=== PATIENT | female | born 1995 | race Caucasian/White ===

== ENCOUNTER 2019-07-14 11:01 | Emergency (ER) | payer BC ==
[~2019-07-14] VITALS: Ht 170.2 cm; Wt 83.2 kg
--- NOTE | 2019-07-14 11:21 | NUR ---
SPOKE WITH THE PATIENT'S DAD AND SHE HAS BEEN DIAGNOSED WITH SCHIZO AFFECTIVE DISORDER AND BIPOLAR, THE PATIENT HAS BEEN ON ABILIFY RESEARCH CONSULTANT WAS DOING WELL AND IN CONJUNCTION WITH THE PATIENT'S DOCTOR WEENING OFF OF THE ABILIFY AND A COUPLE OF MONTHS AGO COMPLETELY OFF OF IT.
[2019-07-14 11:58] LABS: BASOPHILS # (AUTO) 0.1 X10'3 (0-0.2); BASOPHILS % (AUTO) 0.8 % (0-1); EOSINOPHILS % (AUTO) 0.2 % (0-6); HEMATOCRIT 41.3 % (35.0-45.0); HEMOGLOBIN 13.6 g/dl (12.0-16.0); LYMPHOCYTES # (AUTO) 3.5 X10'3 (1.1-4.8); LYMPHOCYTES % (AUTO) 31.6 % (21-51); MEAN CORPUSCULAR HEMOGLOBIN 28.7 PG (27.0-31.0); MEAN CORPUSCULAR HGB CONC 32.9 g/dL (33.0-36.5); MEAN CORPUSCULAR VOLUME 87.2 FL (78-98); MEAN PLATELET VOLUME 7.5 FL (7.4-10.4); MONOCYTES # (AUTO) 0.7 X10'3 (0-0.9); MONOCYTES % (AUTO) 6.1 % (2-12); NEUTROPHILS # (AUTO) 6.8 X10'3 (1.8-7.7); NEUTROPHILS % (AUTO) 61.3 % (42-75); PLATELET COUNT 304 X10'3 (140-440); RED BLOOD COUNT 4.74 X10'6 (4.20-5.60); RED CELL DISTRIBUTION WIDTH 13.2 % (11.5-14.5); WHITE BLOOD COUNT 11.1 X10'3 (4.5-11.0)
[2019-07-14 12:07] LABS: CLARITY,URINE CLOUDY (Clear); GLUCOSE, URINE NEGATIVE (Neg); KETONES,URINE TRACE mg/dl (Neg); LEUKOCYTE ESTERASE ,URINE TRACE (Neg); NITRITES, URINE NEGATIVE (Neg); OCCULT BLOOD,URINE SMALL (Neg); PROTEIN,URINE 30 mg/dl (Neg); URINE HCG NEGATIVE (NEG)
[2019-07-14 12:20] LABS: ALANINE AMINOTRANSFERASE 23 U/L (12-78); ALBUMIN 4.2 G/DL (3.4-5.0); ALBUMIN/GLOBULIN RATIO 1.1 (1.1-1.5); ALKALINE PHOSPHATASE 83 IU/L (46-116); ANION GAP 9 (8-16); ASPARTATE AMINO TRANSFERASE 17 U/L (10-37); BILIRUBIN,TOTAL 0.8 MG/DL (0.1-1.0); BLOOD UREA NITROGEN 8 MG/DL (7-18); BUN/CREATININE RATIO 9.2 (6.6-38.0); CALCIUM 9.4 MG/DL (8.5-10.1); CHLORIDE 106 MMOL/L (99-107); CREATININE 0.87 MG/DL (0.40-0.90); GLUCOSE 94 MG/DL (70-104); POTASSIUM 3.6 MMOL/L (3.5-5.1); SODIUM 141 MMOL/L (135-145); eGFR 80 ML/MIN
[2019-07-14 12:23] LABS: URINE AMPHETAMINE SCREEN NEGATIVE (Neg); URINE BARBITUATE SCREEN NEGATIVE (Neg); URINE BENZODIAZEPINES SCREEN NEGATIVE (Neg); URINE CANNABINOID SCREEN POSITIVE (Neg); URINE COCAINE SCREEN NEGATIVE (Neg); URINE METHADONE SCREEN NEGATIVE (Neg); URINE OPIATE SCREEN NEGATIVE (Neg); URINE PHENCYCLIDINE SCREEN NEGATIVE (Neg)
[2019-07-14 12:24] LABS: COLOR,URINE DARK YELLOW (Yellow); UA COLLECTION TYPE CLN CATCH MIDSTREAM
[2019-07-14 12:25] LABS: ACETAMINOPHEN < 2.0 UG/ML (10-30); ETHANOL < 0.010 GM/DL (0.0-0.010); VALPROATE < 3.0 UG/ML (50-100)
[2019-07-14 12:27] LABS: AMORPHOUS URATES 1+; BACTERIA,URINE 1+ /HPF (Neg); MUCUS STRANDS MANY /LPF (Neg); RBC,URINE 0-2 /HPF (0-2); SQUAMOUS EPITHELIAL CELL,UR MANY /LPF (FEW); WBC,URINE 0-4 /HPF (0-4)
[2019-07-14] MEDS ORDERED: NO HOME MEDS (13:00)
--- NOTE | 2019-07-14 13:45 | NUR ---
Patient transferred from main ER accompanied by RN, Father, fiance and security, ambulating self, no distress observed. She is changed in to green scrubs, all items inventoried and stored. Patient denies SI, HI, A/VH however, she appears to have some bizarre behaviors, tangential speech, and she has her fiance answer questions during the assessment. Father notes that the behavior has been going on since yesterday. She is not currently on any medications. She was followed by Dr. Alonso but has not seen him in a few months. She has previous Dx of schizoaffective disorder and bipolar disorder.
--- NOTE | 2019-07-14 13:52 | NUR ---
PT'S FATHER AND FIANCE AT BEDSIDE. PER THE FATHER PT HAD BEEN SEEING DR TAVAREZ AND WAS WEENED OFF OF ABLILIFY PER PT'S REQUEST.
--- NOTE | 2019-07-14 15:17 | NUR ---
RN for [facility] is at bedside assessing patient. No distress observed. Patient's parents and fiance are present.
--- NOTE | 2019-07-14 15:40 | NUR ---
Patient's father, mother and fiance are at bedside. No distress observed. Will continue to monitor.
--- NOTE | 2019-07-14 17:02 | NUR ---
Patient is sitting up in bed with her head in her hands. Mother, father, therapist and fiance are at bedside. [facility] has reported that she is going to be held on a 5150. He states that she has many resources and support, but she is currently unstable and not on any medications, nor is she being actively followed by Dr. Alonso currently.
--- NOTE | 2019-07-14 18:07 | NUR ---
Patient states that she is very hungry. Offered juice, string cheese and yogurt which patient accepted. Father and other female family member at bedside. She is slamming her water cup and putting her hair over her face when this RN is talking.
--- NOTE | 2019-07-14 18:36 | NUR ---
Jane from [facility] called to do a nurst to nurse. She will be faxing a Senior virus questionnaire.
[2019-07-14] MEDS ORDERED: LORazepam 0.5 MG tablet PO ONE (19:00)
--- NOTE | 2019-07-14 19:30 | NUR ---
Patient is talking with parents. She is up to bathroom. Patient is responding to internal stimuli. Patient smears her fecal material around toilet and law. The patient is assisted with cleaning self by a female tech. Patient is given a new set of scrubs. Patient is resting quietly.
--- NOTE | 2019-07-14 20:00 | NUR ---
A nurse who identified herself as Jane called from [facility] in [place]. This patient will be accepted tomorrow at that hospital, [address] Dr[address] Elmore is the accepting doctor. Per Alma Rosa at [facility] the transport car will be here at 0715 hours.
[2019-07-14] MEDS ORDERED: traZODone 50mg tablet PO ONE (21:00)
--- NOTE | 2019-07-14 22:13 | NUR ---
Patient is sleeping quietly on her left side.
--- NOTE | 2019-07-14 23:16 | NUR ---
Patient is awake and requisting food. She is smiling, laughing, she exhibits flight of ideas. The patient is rapidly shifting her words and actions and presents manic like in behavior.
[2019-07-14] MEDS ORDERED: haloperidol 5mg tablet PO ONE (23:30)
[2019-07-14] MEDS ORDERED: LORazepam 1 MG tablet PO ONE (23:30)
[2019-07-14] MEDS ORDERED: haloperidol lactate 5mg/ml inj ONE (23:36)
[2019-07-14] MEDS ORDERED: LORazepam 2 mg/ml vial ONE (23:37)
[2019-07-14] MEDS ORDERED: LORazepam 2 mg/ml vial IM ONE (23:55)
[2019-07-14] MEDS ORDERED: haloperidol lactate 5mg/ml inj IM ONE (23:55)
[2019-07-14] MEDS ORDERED: diphenhydrAMINE 50 mg/ml inj IM ONE (23:55)
--- NOTE | 2019-07-15 01:30 | NUR ---
This patient is calming some. She is supine in bed. This expert medical writer holds her hand, soft music is played. The patient is easily stimulated to an awake state. A sitter is at bedside holding patients hand at times.
--- NOTE | 2019-07-15 01:45 | NUR ---
This scenario writer spoke with Dr. Araujo. An order was received for Zyprexa IM. If patient doesn't sleep soon Zyprexa will be administered.
[2019-07-15] MEDS ORDERED: OLANZapine **IM** 10 mg inj. IM ONE (01:50)
--- NOTE | 2019-07-15 02:06 | NUR ---
The patient is now sleeping on her right side. Stimulation is being kept to a minimum. Zyprexa is witheld at the moment in hopes patient keeps sleeping. Patient is in view from the nursing station. Frequent rounding is also being done by the tech's for patient safety.
[2019-07-15 05:32] VITALS: BP 110/63
--- NOTE | 2019-07-15 06:14 | NUR ---
Patient is up to the bathroom. Patient is still exhibiting manic behavior, she can be redirected. Patient voided. Last BM was yesterday evening. Patient taking on PO fluids without problem.
== END 2019-07-15 07:37 ==
LOC: ER 11:02
DX: F30.9 Manic episode, unspecified (principal); F12.90 Cannabis use, unspecified, uncomplicated; Z72.89 Other problems related to lifestyle
CPT/HCPCS: 36415; 80053; 80164; 80178; 80305; 80320; 80329; 81001; 81025; 84443; 85025; 96372; 99285; J1200; J1630; J2060

== ENCOUNTER 2021-01-30 17:49 | Emergency (ER) | payer BC, MEDICAID ==
[~2021-01-30] VITALS: Ht 172.7 cm; Wt 110.0 kg
[~2021-01-30 17:49] MED LIST: NO HOME MEDS
[2021-01-30] MEDS ORDERED: haloperidol lactate 5mg/ml inj IM ONE (18:10)
[2021-01-30] MEDS ORDERED: LORazepam 2 mg/ml vial IM ONE (18:15)
[2021-01-30] MEDS ORDERED: diphenhydrAMINE 50 mg/ml inj IM ONE (18:15)
--- NOTE | 2021-01-30 18:51 | NUR ---
The patient was brought in by [employer] after he was called by her parents reporting that she was having "a mental health breakdown" She has previously been diagnoised bipolar. She presented as very manic and talking very rapidly and making grandiose and delusional statements.
[2021-01-30 19:02] LABS: BASOPHILS % (AUTO) 0.5 % (0-1); EOSINOPHILS % (AUTO) 0.1 % (0-6); HEMATOCRIT 36.9 % (35.0-45.0); HEMOGLOBIN 12.6 g/dl (12.0-16.0); LYMPHOCYTES # (AUTO) 1.7 X10'3 (1.1-4.8); LYMPHOCYTES % (AUTO) 18.7 % (21-51); MEAN CORPUSCULAR HEMOGLOBIN 29.1 PG (27.0-31.0); MEAN CORPUSCULAR HGB CONC 34.1 g/dL (33.0-36.5); MEAN CORPUSCULAR VOLUME 85.2 FL (78-98); MEAN PLATELET VOLUME 7.3 FL (7.4-10.4); MONOCYTES # (AUTO) 0.5 X10'3 (0-0.9); MONOCYTES % (AUTO) 5.1 % (2-12); NEUTROPHILS # (AUTO) 7.1 X10'3 (1.8-7.7); NEUTROPHILS % (AUTO) 75.6 % (42-75); PLATELET COUNT 300 X10'3 (140-440); RED BLOOD COUNT 4.33 X10'6 (4.20-5.60); RED CELL DISTRIBUTION WIDTH 12.8 % (11.5-14.5); WHITE BLOOD COUNT 9.4 X10'3 (4.5-11.0)
--- NOTE | 2021-01-30 19:04 | NUR ---
Spoke with the patient's mother who stated that the patient gave in October of the year and her baby had a traumatic brain injury and was in [facility]. The baby is now home but requires a lot of care. The patient has a very supportive family and she lives with her fiance. Per her mother she has been very difficult to stabilize on medications and usually requires a lengthy hospitalization with high doses of prescription medications. The mother believes that she has not been taking her medications as prescribed.
[2021-01-30] MEDS ORDERED: QUET-1 PO (19:09)
[2021-01-30] MEDS ORDERED: LURA20TA PO (19:09)
[2021-01-30] MEDS ORDERED: LAMO25TA72 PO (19:09)
[2021-01-30] MEDS ORDERED: ZOLP5TAB2 PO (19:09)
[2021-01-30 19:17] LABS: ALANINE AMINOTRANSFERASE 30 U/L (12-78); ALBUMIN/GLOBULIN RATIO 1.3 (1.1-1.5); ALKALINE PHOSPHATASE 115 IU/L (46-116); ANION GAP 10 (8-16); ASPARTATE AMINO TRANSFERASE 20 U/L (10-37); BILIRUBIN,TOTAL 0.8 MG/DL (0.1-1.0); BLOOD UREA NITROGEN 12 MG/DL (7-18); BUN/CREATININE RATIO 13.2 (6.6-38.0); CALCIUM 8.8 MG/DL (8.5-10.1); CHLORIDE 108 MMOL/L (99-107); CREATININE 0.91 MG/DL (0.40-0.90); GLUCOSE 104 MG/DL (70-104); POTASSIUM 3.2 MMOL/L (3.5-5.1); SODIUM 143 MMOL/L (135-145); TOTAL CARBON DIOXIDE 25.5 MMOL/L (24-32); TOTAL PROTEIN 7.2 G/DL (6.4-8.2); eGFR 75 ML/MIN
[2021-01-30 19:27] LABS: ETHANOL < 0.010 GM/DL (0.0-0.010)
[2021-01-30] MEDS ORDERED: potassium Cl 20 mEq SR tablet PO PRN (19:35)
--- NOTE | 2021-01-30 19:47 | NUR ---
The patient is quite a bit calmer and up to use the bathroom and she was made aware that a urine specimen was needed.
[2021-01-30 20:20] LABS: URINE HCG NEGATIVE (NEG)
--- NOTE | 2021-01-30 20:23 | NUR ---
MOTHER, VIRIDIANA HOLLEY [phone]
[2021-01-30 20:28] LABS: CLARITY,URINE SLIGHTLY CLOUDY (Clear); COLOR,URINE YELLOW (Yellow); GLUCOSE, URINE NEGATIVE (Neg); PROTEIN,URINE TRACE mg/dl (Neg); UA COLLECTION TYPE CLN CATCH MIDSTREAM
[2021-01-30 20:29] LABS: KETONES,URINE 80 mg/dl (Neg); LEUKOCYTE ESTERASE ,URINE NEGATIVE (Neg); NITRITES, URINE NEGATIVE (Neg); OCCULT BLOOD,URINE LARGE (Neg); UROBILINOGEN,URINE 0.2 E.U/dL (0.2-1.0)
[2021-01-30 20:34] LABS: BACTERIA,URINE 3+ /HPF (Neg); RBC,URINE NONE SEEN /HPF (0-2); SQUAMOUS EPITHELIAL CELL,UR FEW /LPF (FEW)
[2021-01-30 20:35] LABS: MUCUS STRANDS FEW /LPF (Neg)
[2021-01-30] MEDS: zolpidem 5mg tablet PO SCH (20:37)
[2021-01-30 20:42] LABS: URINE AMPHETAMINE SCREEN NEGATIVE (Neg); URINE BARBITUATE SCREEN NEGATIVE (Neg); URINE BENZODIAZEPINES SCREEN NEGATIVE (Neg); URINE CANNABINOID SCREEN POSITIVE (Neg); URINE COCAINE SCREEN NEGATIVE (Neg); URINE METHADONE SCREEN NEGATIVE (Neg); URINE OPIATE SCREEN NEGATIVE (Neg); URINE PHENCYCLIDINE SCREEN NEGATIVE (Neg)
[2021-01-30] MEDS ORDERED: quetiapine 100mg tablet PO SCH ×2 (21:00)
--- NOTE | 2021-01-30 22:49 | NUR ---
The patient is restless and make odd poses on her bed.
--- NOTE | 2021-01-30 22:50 | NUR ---
Packet sent to [facility]
[2021-01-30] MEDS ORDERED: quetiapine 100mg tablet PO ONE (23:05)
[2021-01-30] MEDS ORDERED: phenazopyridine 100mg tablet PO ONE (23:30)
[2021-01-30] MEDS: cephalexin 250mg capsule PO SCH (23:42)
--- NOTE | 2021-01-31 00:29 | NUR ---
The patient is resting on her bed but is awake and restless
--- NOTE | 2021-01-31 01:10 | NUR ---
Patient standing by her bed reading the posters on the wall.
--- NOTE | 2021-01-31 01:56 | NUR ---
The patient up by the posters by her bed and reading them again. She appears distracted by internal stimuli
[2021-01-31] MEDS ORDERED: LORazepam 1 MG tablet PO ONE ×2 (02:10→12:35)
[2021-01-31] MEDS ORDERED: haloperidol 5mg tablet PO ONE (02:10)
[2021-01-31] MEDS ORDERED: diphenhydrAMINE 25mg capsule PO ONE ×2 (02:10→12:35)
--- NOTE | 2021-01-31 02:20 | NUR ---
Dr. Araujo made aware that the patient has been manic and not sleeping and that she remains awake despite medications already given. Also MD made aware that the family reports that the patient has a high tolerance for medications. Orders received.
--- NOTE | 2021-01-31 02:24 | NUR ---
Medication evaluation requested by psychiatry. Spoke with Zora NICE on [facility]
--- NOTE | 2021-01-31 04:04 | NUR ---
The patient did appear to sleep for a short period but now back awake and standing by her bed
--- NOTE | 2021-01-31 05:34 | NUR ---
The patient is awake and restless around her bed and again reading the posters on her wall.
--- NOTE | 2021-01-31 06:55 | NUR ---
Pt was up to the bathroom and fixed her hair into a ponytail. Pt is now lying in bed calm reading a magazine.
--- NOTE | 2021-01-31 07:04 | NUR ---
Pt's mom called for an update. Mom reiterated it is difficult to stabilze pt on medications.
[2021-01-31] MEDS: lurasidone 20mg tablet PO SCH ×2 (07:46→17:44)
[2021-01-31] MEDS: cephalexin 250mg capsule PO SCH ×2 (07:47→20:17)
[2021-01-31] MEDS: lamoTRIgine 25mg tablet PO SCH (07:47)
--- NOTE | 2021-01-31 08:57 | NUR ---
Pt awake eating breakfast. Noted blood on sheets, pt stated she was menstruating. Pt requested to take a wash bath. Linens changed. Pt was compliant with medication and care. Pt was able to watch T.V which seemed to keep her calm. Pt denies all mental health symptoms, is hesitant and evasive with conversation. Pt ate 100% of meal.
--- NOTE | 2021-01-31 11:08 | NUR ---
Pt appears to be sleeping, respirations even and unlabored. Mother at bedside.
--- NOTE | 2021-01-31 12:02 | NUR ---
Pt up to the bathroom.
--- NOTE | 2021-01-31 12:26 | NUR ---
Pt pacing c/o of feeling anxious. Pt states "I just want to walk, but there is no where to go." Pt watching T.V which seems to help. Received order for PO Benadryl 25mg and Ativan 1mg. Will continue to monitor.
--- NOTE | 2021-01-31 13:25 | NUR ---
Pt finished lunch. Watching T.V, intermittent giggles. Pt calm, mother at bedside.
--- NOTE | 2021-01-31 15:13 | NUR ---
Pt was up to the restroom. Pt ate about 75% of her lunch. Pt continues to be calm. Watching T.V.
--- NOTE | 2021-01-31 17:04 | NUR ---
Pt sitting quietly on her bed watching T.V. Pt is calm. Pt requested clean underware and more sanitary pads.
--- NOTE | 2021-01-31 19:00 | NUR ---
Discussed patient with Grzegorz DRAPER, psychiatry, for medication review and recommendations. Medication adjustments were made.
--- NOTE | 2021-01-31 19:50 | NUR ---
One to one with the patient to assess severity of manic symptoms. The patient is pacing around her bed while watching TV. She did not eat her dinner and when asked why she stated that the ice her glass was stuck to the bottom of the glass so there fore she could not eat. The ice was floating on the top but the patient could not be convinced otherwise. Her replies were vague and minimal but she is pleasant. When asked why she is here she stated, "I was unhappy with the world because no one would listen to each other"
[2021-01-31] MEDS: olanzapine 10mg tablet PO SCH (20:17)
[2021-01-31] MEDS: zolpidem 5mg tablet PO SCH (20:17)
[2021-01-31] MEDS: quetiapine 100mg tablet PO SCH (20:17)
[2021-01-31] MEDS: lactobacillus rhamnosus 10,000 MMU CELLS/CAPSULE PO SCH (20:18)
--- NOTE | 2021-01-31 21:00 | NUR ---
The patient is pacing around the unit.
[2021-01-31] MEDS: quetiapine 100mg tablet PO PRN (21:18)
--- NOTE | 2021-01-31 23:31 | NUR ---
The patient is very restless and has not been asleep despite having repeat seroquel dose
--- NOTE | 2021-02-01 01:01 | NUR ---
The patient is awake and unable to sleep
[2021-02-01] MEDS ORDERED: LORazepam 1 MG tablet PO STA (01:53)
--- NOTE | 2021-02-01 01:54 | NUR ---
Discussed history with ER MD, Dr. Lobo. The patient is getting frustrated that she can't sleep. Order for ativan given. Patient observed hitting herself in the head by public works technician but was easily redirected.
--- NOTE | 2021-02-01 02:04 | NUR ---
The patient agitated was repeatedly sqeezing the purell dispenser.
--- NOTE | 2021-02-01 02:10 | NUR ---
The patient began screaming as loud as she could then she ran around the unit pulling the curtains off of their hooks. She then was slamming her bed rail up and down she then ran toward the back of the unit and was knocking over hospital equipment.
[2021-02-01] MEDS ORDERED: MIDAZolam 5mg/ml 2ml vial IM ONE (02:15)
--- NOTE | 2021-02-01 02:15 | NUR ---
Security was called and the patient was placed in [address] Lobo was made aware and came to the bedside and orders received for IM medications.
[2021-02-01] MEDS ORDERED: MIDAZolam 5mg/ml 2ml vial IM STA (02:44)
--- NOTE | 2021-02-01 03:13 | NUR ---
The patient is currently sleeping and restraints were removed.
[2021-02-01] MEDS ORDERED: diphenhydrAMINE 50 mg/ml inj ONE (04:05)
--- NOTE | 2021-02-01 04:05 | NUR ---
The patient increasingly agitated and unable to follow safety directions. The patient was placed in restraints.
--- NOTE | 2021-02-01 04:19 | NUR ---
Dr. Lobo at the bedside
[2021-02-01] MEDS ORDERED: haloperidol lactate 5mg/ml inj IM ONE ×2 (04:20→04:30)
--- NOTE | 2021-02-01 04:29 | NUR ---
The patient is screaming and agitated.
--- NOTE | 2021-02-01 04:54 | NUR ---
The patient is agitated. She is very tangential and pulling at her restraints.
--- NOTE | 2021-02-01 04:56 | NUR ---
The patient is currently singing but not in any kind of organized way.
--- NOTE | 2021-02-01 05:11 | NUR ---
The patient is bouncing her body up and down on the bed.
--- NOTE | 2021-02-01 05:45 | NUR ---
attempted to engage with the patient and she replied, "stop giving me stupid advice"
--- NOTE | 2021-02-01 06:04 | NUR ---
The patient is making loud screeching sounds and fighting against the restraints.
[2021-02-01] MEDS ORDERED: LORazepam 2 mg/ml vial IM ONE (06:30)
--- NOTE | 2021-02-01 06:30 | NUR ---
Assumed care. Pt yelling, swinging and banging her head. She has pulled her pants all the way down and ripping at her clothing.
--- NOTE | 2021-02-01 06:35 | NUR ---
Ativan inj 1mg IM administered.
--- NOTE | 2021-02-01 07:05 | NUR ---
Pt continues to yell. No response from IM medication Ativan. She continues to swing her head and arms and legs. Pt given a drink of water once calmed down and restraints checked for circulation. HOB elevated per pt request.
[2021-02-01] MEDS: olanzapine 10mg tablet PO SCH ×3 (08:00→19:34)
[2021-02-01] MEDS: cephalexin 250mg capsule PO SCH ×3 (08:00→19:34)
[2021-02-01] MEDS: lamoTRIgine 25mg tablet PO SCH ×2 (08:00→09:07)
[2021-02-01] MEDS: lactobacillus rhamnosus 10,000 MMU CELLS/CAPSULE PO SCH ×3 (08:00→19:32)
--- NOTE | 2021-02-01 09:06 | NUR ---
Pt continues to yell, bang herself swing and twisting and threatening staff harm. At one time pt took this writers fingers and bent them then held on to this writers hand and would not let go.
[2021-02-01] MEDS ORDERED: OLANZapine 5mg rapidly disint. tablet PO ONE (09:50)
--- NOTE | 2021-02-01 10:10 | NUR ---
Pt given Zyprexa Zydis 10mg.
--- NOTE | 2021-02-01 10:45 | NUR ---
Pt has been quiet for a few minutes. She is wiggling and twisting and blinking her eyes. VS WNL's.
--- NOTE | 2021-02-01 11:25 | NUR ---
Removed pt's right foot; she right away began swinging her leg reaching the curtain and kicking at it. Pt yelling.
--- NOTE | 2021-02-01 12:00 | NUR ---
Pt continues to yell occasionally, twist and turn. RR even and unlabored. VS WNL's
--- NOTE | 2021-02-01 13:18 | NUR ---
Pt leaning over the bend. She continues to be agitated; tearful at times.
--- NOTE | 2021-02-01 14:00 | NUR ---
Pt is out of restraints. Pt ate part of her meal. She requested to have it left at the bedside. Pt is resting now.
--- NOTE | 2021-02-01 15:05 | NUR ---
Pt sleeping on her right side. RR even and unlabored. She appears to be comfortable. Pt reports, "I do not feel like I was the one that ripped down the curtains last night and destroyed the items behind the partician." She further states, "I know it happened but felt like I was on the outside looking in." Pt also shared that this is not the first time this has happened to her. Then she began to cry stating, "I'm tired of it." In the past she has been on Ability Maintena DUNCAN and Ability oral, Seroquel and Xanax.
[2021-02-01] MEDS: OLANZapine 5mg rapidly disint. tablet PO PRN (16:46)
--- NOTE | 2021-02-01 17:00 | NUR ---
Pt resting while watching TV. She has taken a sponge bath and has clean linens.
[2021-02-01] MEDS: zolpidem 5mg tablet PO SCH (20:21)
[2021-02-01] MEDS: quetiapine 100mg tablet PO SCH (20:21)
[2021-02-01] MEDS: traZODone 50mg tablet PO SCH ×2 (20:21→23:09)
[2021-02-01] MEDS: QUEtiapine 25mg tablet PO SCH (20:23)
[2021-02-01] MEDS: OLANZapine 5mg rapidly disint. tablet PO SCH (20:27)
[2021-02-01] MEDS ORDERED: magnesium hydroxide 30ml (MOM) UD suspension PO ONE (20:35)
--- NOTE | 2021-02-01 23:07 | NUR ---
Patient still exhibits restlessness, anxiety, she is mildly delusional. Seroquel repeaded along with Trazadone.
[2021-02-01] MEDS: quetiapine 100mg tablet PO PRN (23:09)
--- NOTE | 2021-02-02 01:24 | NUR ---
Patient awoke, exhibited confusion, gait is ataxic. Patient redirected back to bed. Two rails up. Patient returned to sleep.
[2021-02-02] MEDS ORDERED: LORazepam 2 mg/ml vial IM ONE ×2 (02:05→05:40)
--- NOTE | 2021-02-02 02:12 | NUR ---
Patient is constantly getting out of bed, ataxic gait, waiving arms around. Patient labile at times. This automotive service writer spoke with [facility] CAMP[facility]. B-10-2 ordered IM. See MAR. Patient assisted back to bed.
[2021-02-02] MEDS ORDERED: diphenhydrAMINE 50 mg/ml inj IM ONE ×2 (02:15→05:40)
[2021-02-02] MEDS ORDERED: haloperidol lactate 5mg/ml inj IM ONE ×2 (02:25→05:40)
--- NOTE | 2021-02-02 02:35 | NUR ---
B-10-2 Administered IM. Sitter at bedside. Patient now exhibiting manic type behavior.
--- NOTE | 2021-02-02 03:46 | NUR ---
Patient has fallen asleep in a supine position.
--- NOTE | 2021-02-02 05:20 | NUR ---
Patient was out of bed, posturing and walking toward security. Patient making repetative movements. Patient swinging arms around, she is delusional. Dr. Bazan consulted. A 12 lead EKG was done to look for abnormal findings prior to administering additional Haldol. EKG is WNL save for sinus tach with PAC's. Ativan 2 mg given IM along with Benadryl 25 mg IM, and Haldol 10 mg IM. Patient cooperated with injections. She then laid down and is now resting.
--- NOTE | 2021-02-02 06:30 | NUR ---
PT awake and walking around the unit,. calm, linear at this time. She requested a snack and food given.
[2021-02-02] MEDS: lactobacillus rhamnosus 10,000 MMU CELLS/CAPSULE PO SCH ×2 (07:54→20:01)
[2021-02-02] MEDS: olanzapine 10mg tablet PO SCH ×2 (07:54→20:01)
[2021-02-02] MEDS: cephalexin 250mg capsule PO SCH ×2 (07:54→20:01)
[2021-02-02] MEDS: lamoTRIgine 25mg tablet PO SCH (07:55)
--- NOTE | 2021-02-02 08:00 | NUR ---
Pt remains calm but paces around. She requested lotion and chapstick which was given
--- NOTE | 2021-02-02 08:30 | NUR ---
Pt given am medication po and took these without issue. Eating breakfast
--- NOTE | 2021-02-02 09:48 | NUR ---
[facility] called and this RN gave report to Deondre NICE there. He states he will give info to MD to review
[2021-02-02] MEDS: OLANZapine 5mg rapidly disint. tablet PO PRN ×2 (10:12→16:37)
[2021-02-02] MEDS ORDERED: sucralfate 1 gm tablet PO ONE (10:15)
--- NOTE | 2021-02-02 10:22 | NUR ---
Pt pacing, making her bed, up to bathroom. RN talked with pt and asked if she needed something to help. Pt states yes. Zydis 5 mg given po. Pt takes without complication
--- NOTE | 2021-02-02 10:25 | NUR ---
Pt requestes "something for heartburn". RN talked with MD Mendoza who placed order for meds.
--- NOTE | 2021-02-02 13:06 | NUR ---
Pt eating lunch
--- NOTE | 2021-02-02 15:11 | NUR ---
Pt pacing but calm but states she is just bored. Pt given color pages which she states she will "do later". She requests to watch tv. Pt has been calm cooperative. RN ok for tv to be at pt bedside safely. TV brought to pt, she tried finding something and couldn't right now. She heard another pt wanted the tv and was fine to let him take a turn now. [facility] then came to bedside to talk with pt
--- NOTE | 2021-02-02 16:43 | NUR ---
Pt states feeling anious/agitated. Requested "something to help". Zydis 5 mg po given. PT mom now at bedside as well. Pt calm talking with mother.
--- NOTE | 2021-02-02 17:45 | NUR ---
Pt now watching tv at bedside. Eating dinner. NAD, calm
--- NOTE | 2021-02-02 19:13 | NUR ---
The patient has been up on the unit and has been pleasant and polite.
[2021-02-02] MEDS: QUEtiapine 25mg tablet PO SCH (20:01)
[2021-02-02] MEDS: OLANZapine 5mg rapidly disint. tablet PO SCH (20:01)
[2021-02-02] MEDS: zolpidem 5mg tablet PO SCH (20:02)
[2021-02-02] MEDS: quetiapine 100mg tablet PO SCH (20:02)
--- NOTE | 2021-02-02 20:19 | NUR ---
Patient up and pacing. Irritable. Stating she can't trust the staff. HS medications given early
--- NOTE | 2021-02-02 20:57 | NUR ---
Patient agitated and pacing in front of the nursing station talking to herself but doesn't make sense
[2021-02-02] MEDS: quetiapine 100mg tablet PO PRN (20:59)
[2021-02-02] MEDS: traZODone 50mg tablet PO SCH (20:59)
[2021-02-02] MEDS ORDERED: mag hydrox/Alum hydrox/simeth 30ml oral suspension PO ONE (21:30)
--- NOTE | 2021-02-02 22:07 | NUR ---
THe patient was encouraged to lay on her bed and turn the light out which she did
--- NOTE | 2021-02-02 23:03 | NUR ---
The patient is very restless but currently is laying on her bed
--- NOTE | 2021-02-03 00:18 | NUR ---
The patient is unable to sleep and Dr. Araujo was made aware and ativan 2mg was given
--- NOTE | 2021-02-03 01:10 | NUR ---
The patient is awake after only appearing to sleep less than 30 minutes
--- NOTE | 2021-02-03 02:53 | NUR ---
The patient is awake off and on
--- NOTE | 2021-02-03 04:34 | NUR ---
Psychiatric evaluation requested. Spoke with Kaushal Tidwell RN on [facility]. It was requested that the patient's zyprexa doses be reviewed and the patient be evaluated for a mood stabilizer.
--- NOTE | 2021-02-03 04:35 | NUR ---
The patient has been very restless and only sleeping in brief spurts. She has only had 2 hours of broken sleep
[2021-02-03] MEDS ORDERED: diphenhydrAMINE 25mg capsule PO ONE (04:50)
[2021-02-03] MEDS ORDERED: LORazepam 1 MG tablet PO ONE ×2 (04:50)
--- NOTE | 2021-02-03 05:12 | NUR ---
Report to [facility]
--- NOTE | 2021-02-03 07:00 | NUR ---
Pt was awake restless, then returned to her bed and closed eyes.
[2021-02-03] MEDS: cephalexin 250mg capsule PO SCH (07:15)
[2021-02-03] MEDS: lamoTRIgine 25mg tablet PO SCH (07:16)
[2021-02-03] MEDS: olanzapine 10mg tablet PO SCH (07:16)
[2021-02-03] MEDS: lactobacillus rhamnosus 10,000 MMU CELLS/CAPSULE PO SCH (07:16)
--- NOTE | 2021-02-03 07:20 | NUR ---
Pt continues to pace, at pumping hand office nurse and rubbing hands. Pt agreeable to take additional medications. Received order for Ativan 1mg q4h. Administered with out issue. Will continue to monitor.
--- NOTE | 2021-02-03 07:23 | NUR ---
Pt awake sitting in chair next to bed, head is in hands. Administered pt's morning medication that included Zyprexa 10mg. Pt is pacing, but has remained calm.
[2021-02-03] MEDS ORDERED: pantoprazole 40mg Tablet.DR PO SCH (07:30)
[2021-02-03] MEDS ORDERED: LORazepam 1 MG tablet PO PRN (07:30)
--- NOTE | 2021-02-03 07:39 | NUR ---
Pt requested a bigger size pants and clean underware. Items given
--- NOTE | 2021-02-03 08:55 | NUR ---
Received phone call from Janett pt was accepted at [facility]. ETA [id number].
--- NOTE | 2021-02-03 08:55 | NUR ---
Pt appears calmer, pt ate about 75% of her breakfast.
[2021-02-03 09:15] VITALS: BP 131/87
--- NOTE | 2021-02-03 09:46 | NUR ---
DISCHARGE NOTE: Pt was transferred to [facility] at 0940. Pt was A&Ox4, pt was calm and cooperative. Pt was provided appropriate clothing. Pt left with personal belongings. Noted some anxiety during discharge, but remained calm. Pt stated "I am glad" she then smiled.
== END 2021-02-03 09:49 ==
LOC: ER 17:50
DX: F31.9 Bipolar disorder, unspecified (principal); Z20.822 Contact with and (suspected) exposure to COVID-19; F12.90 Cannabis use, unspecified, uncomplicated; Z72.89 Other problems related to lifestyle; Z79.899 Other long term (current) drug therapy
CPT/HCPCS: 36415; 80053; 80305; 80320; 81001; 81025; 84443; 85025; 87635; 93005; 96372; 99285; C9803; J1200; J1630; J2060; Q0163

== ENCOUNTER 2021-02-22 08:29 | Inpatient (IN) | payer MEDICAID ==
[~2021-02-22] VITALS: Ht 172.7 cm; Wt 98.9 kg
[~2021-02-22 08:29] MED LIST changes: +LAMO25TA72 PO; +LURA20TA PO; -NO HOME MEDS; +QUET-1 PO; +ZOLP5TAB2 PO
--- NOTE | 2021-02-22 08:52 | NUR ---
Patient is rambling and pacing around room. Stating things like "everytime you talk I want to fuck the devil" "i'm " "i'll go to my grandmas and kill myself." Arun DRAPER at bedside.
[2021-02-22] MEDS ORDERED: haloperidol lactate 5mg/ml inj IM ONE ×3 (08:55→12:45)
[2021-02-22] MEDS ORDERED: LORazepam 2 mg/ml vial IM ONE (08:55)
[2021-02-22] MEDS ORDERED: diphenhydrAMINE 50 mg/ml inj IM ONE (08:55)
--- NOTE | 2021-02-22 09:22 | NUR ---
patient continues to pace around room, standing at doorway, stating she wants to leave and rambling on. chasidy grove aware. Additional dose of haldol ordered.
[2021-02-22 09:36] LABS: URINE AMPHETAMINE SCREEN NEGATIVE (Neg); URINE HCG NEGATIVE (NEG)
[2021-02-22 09:37] LABS: URINE BARBITUATE SCREEN NEGATIVE (Neg); URINE BENZODIAZEPINES SCREEN NEGATIVE (Neg); URINE CANNABINOID SCREEN POSITIVE (Neg); URINE COCAINE SCREEN NEGATIVE (Neg); URINE METHADONE SCREEN NEGATIVE (Neg); URINE OPIATE SCREEN NEGATIVE (Neg); URINE PHENCYCLIDINE SCREEN NEGATIVE (Neg)
--- NOTE | 2021-02-22 10:13 | NUR ---
patient resting quietly in bed
[2021-02-22 10:59] LABS: BASOPHILS % (AUTO) 0.4 % (0-1); EOSINOPHILS # (AUTO) 0.1 X10'3 (0-0.9); EOSINOPHILS % (AUTO) 1.8 % (0-6); HEMATOCRIT 38.4 % (35.0-45.0); HEMOGLOBIN 12.8 g/dl (12.0-16.0); LYMPHOCYTES # (AUTO) 1.3 X10'3 (1.1-4.8); LYMPHOCYTES % (AUTO) 20.9 % (21-51); MEAN CORPUSCULAR HEMOGLOBIN 28.4 PG (27.0-31.0); MEAN CORPUSCULAR HGB CONC 33.3 g/dL (33.0-36.5); MEAN CORPUSCULAR VOLUME 85.5 FL (78-98); MEAN PLATELET VOLUME 7.7 FL (7.4-10.4); MONOCYTES # (AUTO) 0.6 X10'3 (0-0.9); MONOCYTES % (AUTO) 10.4 % (2-12); NEUTROPHILS % (AUTO) 66.5 % (42-75); PLATELET COUNT 288 X10'3 (140-440); RED BLOOD COUNT 4.49 X10'6 (4.20-5.60); RED CELL DISTRIBUTION WIDTH 13.1 % (11.5-14.5); WHITE BLOOD COUNT 6.1 X10'3 (4.5-11.0)
[2021-02-22] MEDS ORDERED: LORazepam 1 MG tablet PO ONE (11:15)
[2021-02-22] MEDS ORDERED: aripiprazole 5mg tablet PO SCH (11:20)
[2021-02-22] MEDS ORDERED: LITH300C PO (11:27)
[2021-02-22] MEDS ORDERED: LITH450T2 PO (11:29)
[2021-02-22] MEDS ORDERED: ARIP5TAB14 PO (11:40)
[2021-02-22] MEDS ORDERED: QUET-1 PO ×2 (11:41)
[2021-02-22 11:51] LABS: ALBUMIN 3.5 G/DL (3.4-5.0); ALBUMIN/GLOBULIN RATIO 0.9 (1.1-1.5); ANION GAP 9 (8-16); BILIRUBIN,TOTAL 0.4 MG/DL (0.1-1.0); BLOOD UREA NITROGEN 10 MG/DL (7-18); BUN/CREATININE RATIO 13.7 (6.6-38.0); CALCIUM 9.5 MG/DL (8.5-10.1); CHLORIDE 107 MMOL/L (99-107); CREATININE 0.73 MG/DL (0.40-0.90); GLUCOSE 99 MG/DL (70-104); POTASSIUM 3.4 MMOL/L (3.5-5.1); SODIUM 139 MMOL/L (135-145); TOTAL CARBON DIOXIDE 23.4 MMOL/L (24-32); TOTAL PROTEIN 7.5 G/DL (6.4-8.2); eGFR > 90 ML/MIN
[2021-02-22 11:52] LABS: ALANINE AMINOTRANSFERASE 43 U/L (12-78); ALKALINE PHOSPHATASE 119 IU/L (46-116); ASPARTATE AMINO TRANSFERASE 28 U/L (10-37); ETHANOL < 0.010 GM/DL (0.0-0.010)
--- NOTE | 2021-02-22 11:56 | NUR ---
patient continues to be agitated. found attempting to dig into sharps bin and then she threw herself on the ground. chasidy grove aware.
[2021-02-22] MEDS ORDERED: quetiapine 100mg tablet PO SCH ×2 (12:00→21:00)
--- NOTE | 2021-02-22 13:30 | NUR ---
Pt on unit at this time and I assumed care. Pt noted pacing through unit and pt asked to return to bed. Pt easily re-directable.
--- NOTE | 2021-02-22 14:38 | NUR ---
Dr. Greene at bedside
[2021-02-22 14:55] LABS: CLARITY,URINE CLEAR (Clear); COLOR,URINE YELLOW (Yellow); UA COLLECTION TYPE CLN CATCH MIDSTREAM
[2021-02-22 14:56] LABS: GLUCOSE, URINE NEGATIVE (Neg); KETONES,URINE NEGATIVE (Neg); LEUKOCYTE ESTERASE ,URINE NEGATIVE (Neg); NITRITES, URINE NEGATIVE (Neg); OCCULT BLOOD,URINE NEGATIVE (Neg); PH,URINE 6.5 (4.8-8.0); PROTEIN,URINE NEGATIVE (Neg); UROBILINOGEN,URINE 0.2 E.U/dL (0.2-1.0)
--- NOTE | 2021-02-22 14:57 | NUR ---
Pt pacing throughout unit, rambling words, washing hands constantly and going through srub cabinets and removing multiple scrubs. Dr. Greene at bedside.
--- NOTE | 2021-02-22 15:04 | NUR ---
Pt uncooperative. Failed attempt at an EKG
[2021-02-22] MEDS ORDERED: quetiapine 100mg tablet PO PRN (15:50)
[2021-02-22] MEDS ORDERED: LORazepam 1 MG tablet PO PRN (15:50)
[2021-02-22] MEDS: divalproex 250mg tablet, delayed-release PO SCH ×2 (16:09→20:10)
--- NOTE | 2021-02-22 17:04 | NUR ---
Pt continually pacing throughout unit. In and out of room, opening and closing curtain, undressing herself, washing hands, using hand gold assayer, pulling out purple wipes continually. Pt states she is tired and wants to go to sleep, however pt noted unable to sit in one place for extended periods of time
[2021-02-22] MEDS: risperiDONE 2mg tablet PO SCH (20:11)
[2021-02-22] MEDS: quetiapine 100mg tablet PO SCH (20:11)
[2021-02-22] MEDS ORDERED: lithium carbonate 150mg capsule PO SCH (21:00)
[2021-02-23] MEDS ORDERED: haloperidol lactate 5mg/ml inj IM ONE ×4 (02:15→19:50)
[2021-02-23] MEDS ORDERED: diphenhydrAMINE 50 mg/ml inj IM ONE ×3 (02:15→19:50)
--- NOTE | 2021-02-23 02:20 | NUR ---
PT WOKE UP AND DUMPED WATER ONTO BED AND THEN STARTED TRYING TO DESTROY PROPERTY. PT POSTURED STAFF AND THEN PUSHED ANOTHER STAFF MEMBER. SECURITY CALLED AND PT PLACED IN RESTRAINTS AND MEDICATED. AT BEDSIDE WELL.
[2021-02-23] MEDS ORDERED: MIDAZolam 5mg/ml 2ml vial IM ONE ×3 (02:55→04:05)
--- NOTE | 2021-02-23 05:10 | NUR ---
PLACED IN ROOM 13
--- NOTE | 2021-02-23 05:18 | NUR ---
PT MOVED TO ROOM IN ER D/T CONTINUOUS YELLING AND SCREAMING OBSCENITIES AND DISRUPTING OTHER PTS. PT VERY VULGAR.
[2021-02-23] MEDS ORDERED: ketamine 50 mg/ml 10ml vial IM ONE ×3 (05:30→22:10)
--- NOTE | 2021-02-23 05:30 | NUR ---
PT SCREAMING OBSCENITIES, THREATENING STAFF, AND VIOLENTLY PULLING ON HER RESTRAINTS.
--- NOTE | 2021-02-23 05:46 | NUR ---
PT MEDICATED PER DR DAI ORDERS. PT PLACED ON PHOTONIC LABORATORY TECHNICIAN
--- NOTE | 2021-02-23 06:02 | NUR ---
PT CONTINUES TO HALLUCINATE; MAKING RANDOM SOUNDS; PICKS HEAD UP AND LOOKS AROUND ROOM; NO LONGER YELLING OR TRYING TO GET OFF BED
[2021-02-23] MEDS ORDERED: OLANZapine **IM** 10 mg inj. IM ONE (06:45)
--- NOTE | 2021-02-23 06:50 | NUR ---
Patient screaming out, pounding on bed, attempted to redirect patient but she will mimic any verbal communication. Patient is in restraints from assistant casino shift manager. Sitter unavailable, charge nurse aware. Dr Doshi aware, orders received.
[2021-02-23] MEDS ORDERED: LORazepam 2 mg/ml vial IV ONE (07:05)
--- NOTE | 2021-02-23 07:40 | NUR ---
Patient calm but unable to make sense, she continues to ramble and mimic my verbal communication.
[2021-02-23] MEDS ORDERED: divalproex 250mg tablet, delayed-release PO SCH (08:00)
--- NOTE | 2021-02-23 08:00 | NUR ---
Patient advised breakfast has arrived, she will be released from restraints to eat and eval her ability to maintain safety outside of restraints, pt unable to agree to plan due to rambling speech. Sitter at bedside currently for safety while eating and removed from restraints.
[2021-02-23] MEDS: divalproex 250mg tablet, delayed-release PO SCH ×2 (08:26→21:00)
--- NOTE | 2021-02-23 10:00 | NUR ---
Patient agitated speaking but repetitive words, pacing around room and attempting to leave. Patient redirected to remain in room she then tore the scanner off the wall, sitter no longer available (credit charge authorizer aware) notified orders received.
[2021-02-23] MEDS ORDERED: LORazepam 2 mg/ml vial IM ONE ×4 (10:10→19:50)
[2021-02-23 11:37] LABS: ANION GAP 6 (8-16); BLOOD UREA NITROGEN 12 MG/DL (7-18); BUN/CREATININE RATIO 13.6 (6.6-38.0); CALCIUM 9.1 MG/DL (8.5-10.1); CHLORIDE 112 MMOL/L (99-107); CREATININE 0.88 MG/DL (0.40-0.90); GLUCOSE 90 MG/DL (70-104); POTASSIUM 3.7 MMOL/L (3.5-5.1); SODIUM 144 MMOL/L (135-145); TOTAL CARBON DIOXIDE 26.2 MMOL/L (24-32); eGFR 78 ML/MIN
--- NOTE | 2021-02-23 12:45 | NUR ---
Patient out of bed for lunch and commode use, sitter at bedside.
--- NOTE | 2021-02-23 13:00 | NUR ---
Patient screaming, pulling at computer screen, pounding on bed. Unable to redirect patient. Md notified, orders received. Sitter unavailable per chargeback specialist
--- NOTE | 2021-02-23 15:00 | NUR ---
Patient resting, able to sleep for a short time but becoming more vocal and repetative speech. Mother updated on plan by phone.
[2021-02-23] MEDS ORDERED: ziprasidone IM 20mg inj **IM only IM ONE (17:45)
--- NOTE | 2021-02-23 18:30 | NUR ---
pt resting with eyes closed, talking in sleep.
--- NOTE | 2021-02-23 19:45 | NUR ---
pt attempting to remove restraints and yelling "bitch" "help me" "come fuck me". pt attempting to sit up in bed and yell at staff walking by. [facility] notified.
--- NOTE | 2021-02-23 20:26 | NUR ---
[facility] called for update on pt. will calll back if their md will accept pt. stated pt will need to be out of restraints for 2 hrs prior to acceptance.
[2021-02-23] MEDS: quetiapine 100mg tablet PO SCH (21:00)
[2021-02-23] MEDS: risperiDONE 2mg tablet PO SCH (21:00)
--- NOTE | 2021-02-23 21:09 | NUR ---
attempted to pass hs medications. pt refused to swallow medications and spit all of them out at rn. [facility] aware
--- NOTE | 2021-02-23 22:20 | NUR ---
pt yelling profanities, screaming, kicking legs, and bouncing body on bed. md ashley gray.
[2021-02-23 22:38] LABS: ALANINE AMINOTRANSFERASE 42 U/L (12-78); ALBUMIN 3.1 G/DL (3.4-5.0); ALBUMIN/GLOBULIN RATIO 0.8 (1.1-1.5); ALKALINE PHOSPHATASE 107 IU/L (46-116); ANION GAP 13 (8-16); ASPARTATE AMINO TRANSFERASE 45 U/L (10-37); BILIRUBIN,TOTAL 0.5 MG/DL (0.1-1.0); BLOOD UREA NITROGEN 13 MG/DL (7-18); BUN/CREATININE RATIO 14.8 (6.6-38.0); CALCIUM 8.8 MG/DL (8.5-10.1); CHLORIDE 110 MMOL/L (99-107); CREATININE 0.88 MG/DL (0.40-0.90); GLUCOSE 87 MG/DL (70-104); POTASSIUM 3.5 MMOL/L (3.5-5.1); SODIUM 146 MMOL/L (135-145); TOTAL PROTEIN 7.1 G/DL (6.4-8.2); eGFR 78 ML/MIN
[2021-02-23 22:50] LABS: CREATINE KINASE 1907 U/L (26-192)
--- NOTE | 2021-02-24 02:53 | NUR ---
TOOK PT OUT OF ARM AND LEG RESTRAINTS, ABLE TO BE REDIRECTED. DID ROM EXERCISES WITH UPPER AND LOWER EXTREMITIES. PT AWAKE AND ORIENTED TO SELF AND PLACE BUT NOT REASON FOR BEING HERE. PT RESPONDING APPROPRIATELY. SITTER AT BEDSIDE.
[2021-02-24] MEDS ORDERED: MIDAZolam 5mg/ml 2ml vial IM ONE (05:05)
--- NOTE | 2021-02-24 05:14 | NUR ---
pt naked standing on bed. pt was directed off of bed and then urinated in corner. pt at door and attempting to charge at staff. pt no following directions, yelling incomprehensible statements. per md ramirez, place pt back into 4 point restraints and give versed 10mg IM.
--- NOTE | 2021-02-24 05:15 | NUR ---
pt placed back on formal wear rental clerk, placed in clean scrubs. will continue to monitor.
[2021-02-24] MEDS ORDERED: ketamine 50 mg/ml 10ml vial IM ONE ×5 (06:30→23:05)
[2021-02-24] MEDS: divalproex 250mg tablet, delayed-release PO SCH ×2 (08:00→21:00)
[2021-02-24] MEDS ORDERED: normal saline 1000ml 1,000 ML IV ONE ×2 (08:45→23:35)
[2021-02-24] MEDS ORDERED: ketamine 50mg/5ml syringe IM ONE ×2 (08:48→08:50)
--- NOTE | 2021-02-24 10:00 | NUR ---
PATIENT RESTING IN BED WITH RESTRAINTS INTACT. AWAKENS EASILY AND YELLING OUT WHEN STAFF IS NOT IN SIGHT.
--- NOTE | 2021-02-24 11:27 | NUR ---
relieving RN for break, pt is in 4point restraints, sitter at bedside talking with pt
--- NOTE | 2021-02-24 13:30 | NUR ---
PATIENT ATE LUNCH WITH STAFF SUPERVISION. COOOPERATED WITH UPPER EXTREM RESTRAINTS OFF. RESTING IN BED.
[2021-02-24 13:44] LABS: ALBUMIN 2.9 G/DL (3.4-5.0); ANION GAP 7 (8-16); BLOOD UREA NITROGEN 13 MG/DL (7-18); BUN/CREATININE RATIO 16.3 (6.6-38.0); CALCIUM 8.5 MG/DL (8.5-10.1); CHLORIDE 112 MMOL/L (99-107); GLUCOSE 102 MG/DL (70-104); POTASSIUM 3.6 MMOL/L (3.5-5.1); SODIUM 144 MMOL/L (135-145); TOTAL CARBON DIOXIDE 25.1 MMOL/L (24-32); eGFR 87 ML/MIN
[2021-02-24 13:46] LABS: CREATINE KINASE 2203 U/L (26-192)
--- NOTE | 2021-02-24 14:32 | NUR ---
Patient is now in 2 point restraints.
--- NOTE | 2021-02-24 15:24 | NUR ---
PATIENT'S MOTHER CALLED IN FOR CONDITION REPORT.
--- NOTE | 2021-02-24 15:27 | NUR ---
PATIENT SITTING UP IN BED. PULLED OFF ALL MONITORING DEVICES (PULSE OX, MONITOR LEADS, BP CUFF). QUIETLY RESTING IN BED WITH SIDERAILS UP AND RESTRAINTS X 2 EXTREMS AT THIS TIME.
[2021-02-24] MEDS ORDERED: OLANZapine **IM** 10 mg inj. IM ONE (22:20)
--- NOTE | 2021-02-24 22:36 | NUR ---
PT THRASHING ON THE BED AND SCREAMING. MD WAS NOTIFIED, ORDER TAKEN FOR IM ZYPREXA, WHICH WAS GIVEN.
[2021-02-24] MEDS ORDERED: DEXMEDETOMIDINE 400mcg/4ml inj 400 MCG in normal saline 100ml IV soln 96 ML IV SCH (23:35)
[2021-02-24] MEDS: dexmedetomidine/D5W 100mL 100 ML IV SCH (23:40)
[2021-02-25] LABS: ALBUMIN 3.2 G/DL (3.4-5.0); ANION GAP 10 (8-16); BLOOD UREA NITROGEN 12 MG/DL (7-18); BUN/CREATININE RATIO 13.2 (6.6-38.0); CALCIUM 9.1 MG/DL (8.5-10.1); CHLORIDE 110 MMOL/L (99-107); CREATININE 0.91 MG/DL (0.40-0.90); GLUCOSE 93 MG/DL (70-104); POTASSIUM 3.3 MMOL/L (3.5-5.1); SODIUM 144 MMOL/L (135-145); TOTAL CARBON DIOXIDE 24.4 MMOL/L (24-32); eGFR 75 ML/MIN
[2021-02-25 00:05] LABS: CREATINE KINASE 2949 U/L (26-192)
[2021-02-25] MEDS ORDERED: normal saline 1000ml 1,000 ML IV ONE ×2 (00:45)
[2021-02-25] MEDS: potassium CL 20mEq in D5-1/2NS 1,000 ML IV SCH ×3 (02:55→22:55)
[2021-02-25] MEDS ORDERED: calcium chloride 100 MG/1 ML inj IV ONE (08:00)
[2021-02-25] MEDS: divalproex 250mg tablet, delayed-release PO SCH ×2 (08:00→21:00)
[2021-02-25] MEDS ORDERED: epiNEPHrine 0.1mg/ml 10ml syringe ONE (08:00)
[2021-02-25] MEDS ORDERED: sodium bicarbonate (8.4%) 1 mEq/ml syringe ONE (08:00)
[2021-02-25] MEDS ORDERED: rocuronium 10mg/ml inj IV ONE (08:00)
[2021-02-25] MEDS ORDERED: LIDOcaine 2% (20 mg/ml) 5ml cardiac syringe ONE (08:00)
[2021-02-25] MEDS: dexmedetomidine/D5W 100mL 100 ML IV SCH ×2 (08:41→17:52)
[2021-02-25] MEDS: enoxaparin 40mg/0.4ml syringe SUBCUT SCH (08:42)
[2021-02-25] MEDS ORDERED: ketamine 50 mg/ml 10ml vial IV ONE (10:45)
[2021-02-25] MEDS ORDERED: haloperidol lactate 5mg/ml inj IM ONE (10:45)
--- NOTE | 2021-02-25 10:46 | NUR ---
Spoke with Dr. Mccarty re; pt not tolerating IV precedex. Orders given, will round on pt shortly Addendum: 02/25/21 at 1203 by PAVEL Pt offered water, however refused at this time
[2021-02-25] MEDS ORDERED: normal saline 1000ML IV soln IVB ONE (11:35)
--- NOTE | 2021-02-25 11:36 | NUR ---
Pt noted and yelling racial obscenities and slurs. Pt noted exsposing her private parts.
[2021-02-25] MEDS ORDERED: ziprasidone IM 20mg inj **IM only IM ONE ×2 (11:55→13:55)
--- NOTE | 2021-02-25 12:04 | NUR ---
Pt offered and drank a cup of water
--- NOTE | 2021-02-25 12:53 | NUR ---
@12:30 TEX Fry changed pt clothing and bed due to pt wetting bed. Gave water and juice. pt was cooperative at time and assisting appropriatley. Per RN restraints from both legs were removed. pt is now covered with blanket, lights dimmed, and sleeping. Restraints of both legs are still off at this time.
--- NOTE | 2021-02-25 13:28 | NUR ---
warm blanket given
--- NOTE | 2021-02-25 13:50 | NUR ---
pt was being loud and yelling. Pt was offerd food and refused. Pt was kicking bed, RN and I placed pt back in restraints.
[2021-02-25] MEDS ORDERED: haloperidol lactate 5mg/ml inj ONE (15:49)
--- NOTE | 2021-02-25 18:30 | NUR ---
Pt report received from TEX Navarro. Pt at this time is covered in her own feces, she is completely naked, diaper with feces is on the floor. Pt is not on the monitor, currently in 4 point (wrists and ankle) hard restraints. She is currently on 1.5mcg/kg/min on precedex. Pt at this time is alert, not oriented, talking in noncoherent sentences.
--- NOTE | 2021-02-25 19:00 | NUR ---
Pt cleaned, given a bed bath, placed back on a diaper. Pt is dressed and placed back in green scrubs. Pt is not able to tolerate a purewick at this time, due to the constant movement of the patient. Pt placed back on the groundwater monitoring technician, blood pressure cuff and SPO2 pulse ox. Gave patient a drink of water. Asked pt is she wanted her dinner tray. Pt declined dinner tray. Bed is locked, lower in the lowest position. Pt is in 4 point restraints. Will continue to monitor patient with frequent nurse checks.
--- NOTE | 2021-02-25 22:00 | NUR ---
Pt has pulled out both IVs lines. Will have to place an ultrasound line in her forearm.
--- NOTE | 2021-02-25 22:30 | NUR ---
Saji NICE, charge nurse is at bedside to place peripheral IV line.
--- NOTE | 2021-02-25 23:59 | NUR ---
relieving RN for break, pt is sitting up in bed, rapidly talking nonstop to herself about the "holy spirit...in the name of paul lindsay...." over and over, pt cut IV tubing to left forearm, small puddle of blood on floor, IV equipment replaced and medication gtt restarted
[2021-02-26] VITALS (11 sets, daily range): BP systolic 78–131; BP diastolic 40–92
--- NOTE | 2021-02-26 | NUR ---
Pt is currently screaming loudly. Pt has taken off of her clothes. Pt has also defecated on herself, pt's diaper is off and on the floor. Pt is off the director of cardiac cath lab and pulse ox is on the ground. Will redress and clean patient.
--- NOTE | 2021-02-26 01:00 | NUR ---
Pt has removed all cardiac leads and pulse ox. Pt states " I just want to , I am not on earth at this moment." Pt constantly rambling and having flight of ideas. Pt is unable to make eye contact with me. Pt still in 4 point restraints. Pt is attempting to pull IV out, will coban patient's arm.
--- NOTE | 2021-02-26 02:00 | NUR ---
Called the night time jackaroo, Dr. Malone to called for another recommendation for medication. This RN shared concerns regarding this sedation medication, due to the patient not being sedating and is already maxed out on the presdex drip at 1.5mcg/kg/min. I also informed the doctor, that this patient from the previous daytime shift, has already received haldol and geodon. This doctor appeared to be sleep and recommended 2mg of Ativan IM. This RN did not feel comfortable given that, therefore did not. Will continue to monitor patient. Will call morning jackaroo for another recommendation.
[2021-02-26] MEDS: dexmedetomidine/D5W 100mL 100 ML IV SCH ×3 (02:58→21:10)
--- NOTE | 2021-02-26 05:00 | NUR ---
Called Dr. Darby ([phone]) for a recommendation for new medication for patient. Patient is currently on 1.5mcg/kg/min of dexmedetomidn, due to patient psychosis behavior. Dr. Darby stated that he was not filtration operator at the time. Will try again at 7:00am.
--- NOTE | 2021-02-26 05:45 | NUR ---
During my shift, patient was on a constant drip of dexmedetomidn at a rate of 1.5 mcg/kg/min. Pt was in 4 point hard restraints due to her psychosis, screaming, and manic behavior. Pt did not keep on blood pressure cuff, pulse ox, or cardiac leads, due to her constant kicking and screaming. Pt pulled out three IVs lines during my shift. Pt constant undressed herself, urinated on herself, and had several bowel movements on herself. Pt was offered an external cathether to help keep her clean. Pt did not sleep or settle down none of the night. Pt was scream for hours at a time. This RN did hourly rounding on this patient. At approx 0545, this RN walked in the patient's room to access the patient, and noticed that, patient was not breathing and immediately began CPR and called for help.
--- NOTE | 2021-02-26 05:56 | NUR ---
Code Blue: 0545, cpr started 0546: vfib on monitor, 1 epi given. 0547: vfib on monitor, 2gm magnesium given. 0548: vfib on monitor, 1 epi given, defib w/ 200joules, rosc. 0548: ST 114 on monitor, 20mg etomidate, 100mg rocuronium given, intubation size 8, 21@ lip by dr park. pos co2 indicator. 0551: st 120, bp 189/112 0554: st 162, bp 178/112 0556: st 146, bp 178/112 spo2 87
[2021-02-26] MEDS ORDERED: propofol 1000mg/100ml bottle 100 ML IV PRN (06:35)
[2021-02-26] MEDS ORDERED: potassium Cl 10 mEq/100mL bag IV ONE ×2 (06:35)
[2021-02-26] MEDS ORDERED: magnesium 2GM in 50ml NS 50 ML IV ONE (06:35)
[2021-02-26 07:21] LABS: ABG BASE EXCESS -11.5 mmol/L (-2.0-2.0); ABG HCO3 16.4 mmol/L (22.0-26.0); ABG OXYGEN SATURATION 95.6 % (94-97); ABG PCO2 (T) 44.1 mmHg (32.0-45.0); ABG PO2 (T) 98.2 mmHg (75.0-100.0); ALLEN'S TEST POSITIVE; FCOHb 0.1 % (0.0-3.9); FMetHb 0.3 % (0.0-1.5); FO2Hb 95.2 % (94-97); PATIENT TEMPERATURE 36.9; PEEP 5 cm H2O; RESPIRATORY RATE 16 b/min; TIDAL VOLUME 472 mL; TOTAL HEMOGLOBIN 14.1 G/dl (12.0-16.0)
[2021-02-26] MEDS: enoxaparin 40mg/0.4ml syringe SUBCUT SCH (08:00)
[2021-02-26] MEDS ORDERED: MIDAZolam 5mg/ml 2ml vial IV ONE (08:30)
--- NOTE | 2021-02-26 09:00 | NUR ---
PT'S FIEANCE, GRACE CHANG, CALLED AFTER RECEIVING A MESSAGE REGARDING PT'S STATUS. INFORMED THAT PT SUDDENLY CODED, IS INTUBTED AND SEDATED, IS CURRENTLY STABLE AND AWAITING AN ICU ROOM PT'S RN NOTIFIED.
[2021-02-26] MEDS ORDERED: midazolam 1 mg/ML 2ml injection ONE (09:30)
[2021-02-26] MEDS ORDERED: LITH300C PO (10:52)
[2021-02-26] MEDS ORDERED: normal saline 1000ml 1,000 ML IV ONE (11:15)
--- NOTE | 2021-02-26 11:21 | NUR ---
DR ANTONIO CALLED, NOTIFIED THAT PT IS BRAKING THROUGHT THE PROPOPHAL. NEW ORDERS RECEIVED FOR 1L NS AND VERSED GTT TO START AT 4MG PER HR. PT'S RN NOTIFIED
[2021-02-26 11:31] LABS: BASOPHILS # (AUTO) 0.1 X10'3 (0-0.2); BASOPHILS % (AUTO) 0.3 % (0-1); EOSINOPHILS % (AUTO) 0.1 % (0-6); HEMATOCRIT 42.2 % (35.0-45.0); HEMOGLOBIN 13.7 g/dl (12.0-16.0); LYMPHOCYTES # (AUTO) 2.7 X10'3 (1.1-4.8); LYMPHOCYTES % (AUTO) 11.4 % (21-51); MEAN CORPUSCULAR HEMOGLOBIN 27.5 PG (27.0-31.0); MEAN CORPUSCULAR HGB CONC 32.4 g/dL (33.0-36.5); MEAN CORPUSCULAR VOLUME 84.7 FL (78-98); MEAN PLATELET VOLUME 7.4 FL (7.4-10.4); MONOCYTES # (AUTO) 2.7 X10'3 (0-0.9); MONOCYTES % (AUTO) 11.6 % (2-12); NEUTROPHILS # (AUTO) 18.1 X10'3 (1.8-7.7); NEUTROPHILS % (AUTO) 76.6 % (42-75); PLATELET COUNT 404 X10'3 (140-440); RED BLOOD COUNT 4.99 X10'6 (4.20-5.60); RED CELL DISTRIBUTION WIDTH 12.9 % (11.5-14.5); WHITE BLOOD COUNT 23.6 X10'3 (4.5-11.0)
[2021-02-26 11:42] LABS: ALANINE AMINOTRANSFERASE 610 U/L (12-78); ALBUMIN 3.4 G/DL (3.4-5.0); ALBUMIN/GLOBULIN RATIO 0.9 (1.1-1.5); ALKALINE PHOSPHATASE 136 IU/L (46-116); ANION GAP 13 (8-16); ASPARTATE AMINO TRANSFERASE 582 U/L (10-37); BILIRUBIN,TOTAL 0.7 MG/DL (0.1-1.0); BLOOD UREA NITROGEN 12 MG/DL (7-18); BUN/CREATININE RATIO 12.2 (6.6-38.0); CALCIUM 8.3 MG/DL (8.5-10.1); CHLORIDE 104 MMOL/L (99-107); CREATININE 0.98 MG/DL (0.40-0.90); GLUCOSE 141 MG/DL (70-104); POTASSIUM 3.4 MMOL/L (3.5-5.1); SODIUM 140 MMOL/L (135-145); TOTAL CARBON DIOXIDE 22.9 MMOL/L (24-32); TOTAL PROTEIN 7.4 G/DL (6.4-8.2); eGFR 69 ML/MIN
[2021-02-26] MEDS ORDERED: ARIP400S3 IM (11:48)
[2021-02-26 11:52] LABS: CREATINE KINASE 1489 U/L (26-192)
[2021-02-26 11:57] LABS: PLATELET ESTIMATE NORMAL; TOTAL CELLS COUNTED 100
[2021-02-26 11:58] LABS: TROPONIN I 0.95 NG/ML (0.0-0.05)
[2021-02-26] MEDS ORDERED: NORepinephrine 8mg/ 250ml NS 250 ML IV ONE (12:56)
[2021-02-26] MEDS: midazolam 100mg in NS 100ml 100 ML IV PRN ×3 (14:15→19:58)
[2021-02-26] MEDS: FENTANYL-0.9 % NACL/PF 100 ML IV PRN ×3 (14:16→22:58)
[2021-02-26] MEDS: potassium CL 20mEq in D5-1/2NS 1,000 ML IV SCH ×3 (14:26→23:40)
[2021-02-26] MEDS ORDERED: LORazepam 1 MG tablet OGT PRN (14:34)
[2021-02-26] MEDS: NORepinephrine 8mg/ 250ml NS 250 ML IV SCH (14:40)
[2021-02-26 15:36] LABS: BASOPHILS % (AUTO) 0.2 % (0-1); EOSINOPHILS % (AUTO) 0.1 % (0-6); HEMATOCRIT 39.9 % (35.0-45.0); HEMOGLOBIN 13.3 g/dl (12.0-16.0); LYMPHOCYTES # (AUTO) 1.6 X10'3 (1.1-4.8); MEAN CORPUSCULAR HGB CONC 33.3 g/dL (33.0-36.5); MEAN CORPUSCULAR VOLUME 84.1 FL (78-98); MEAN PLATELET VOLUME 7.5 FL (7.4-10.4); MONOCYTES # (AUTO) 1.2 X10'3 (0-0.9); NEUTROPHILS # (AUTO) 17.3 X10'3 (1.8-7.7); NEUTROPHILS % (AUTO) 85.7 % (42-75); PLATELET COUNT 361 X10'3 (140-440); RED BLOOD COUNT 4.75 X10'6 (4.20-5.60); RED CELL DISTRIBUTION WIDTH 12.8 % (11.5-14.5); WHITE BLOOD COUNT 20.2 X10'3 (4.5-11.0)
[2021-02-26 15:54] LABS: ALANINE AMINOTRANSFERASE 500 U/L (12-78); ALBUMIN 2.9 G/DL (3.4-5.0); ALBUMIN/GLOBULIN RATIO 0.7 (1.1-1.5); ALKALINE PHOSPHATASE 124 IU/L (46-116); ANION GAP 16 (8-16); ASPARTATE AMINO TRANSFERASE 423 U/L (10-37); BILIRUBIN,TOTAL 0.5 MG/DL (0.1-1.0); BLOOD UREA NITROGEN 9 MG/DL (7-18); BUN/CREATININE RATIO 12.2 (6.6-38.0); CALCIUM 7.8 MG/DL (8.5-10.1); CHLORIDE 107 MMOL/L (99-107); CREATININE 0.74 MG/DL (0.40-0.90); GLUCOSE 112 MG/DL (70-104); POTASSIUM 3.4 MMOL/L (3.5-5.1); SODIUM 143 MMOL/L (135-145); TOTAL CARBON DIOXIDE 20.3 MMOL/L (24-32); TOTAL PROTEIN 6.8 G/DL (6.4-8.2); eGFR > 90 ML/MIN
[2021-02-26 15:58] LABS: CHOL/HDL RATIO 4.2 (0.00-4.99); CHOLESTEROL 109 MG/DL (0-200); HDL CHOLESTEROL 26 MG/DL (35-60); LDL CHOLESTEROL 64 MG/DL (50-100); TRIGLYCERIDES 219 MG/DL (20-135)
[2021-02-26 16:03] LABS: MAGNESIUM 2.1 MG/DL (1.5-2.4); PHOSPHORUS 4.3 MG/DL (2.3-4.5)
[2021-02-26 16:04] LABS: TROPONIN I 1.43 NG/ML (0.0-0.05)
[2021-02-26] MEDS: CISatracurium besylate inj. 100 MG in normal saline 100ml IV soln 90 ML IV PRN ×2 (17:35→23:39)
--- NOTE | 2021-02-26 18:19 | NUR ---
Problems reprioritized. Patient report given, questions answered & plan of care reviewed with brennan NICE.
--- NOTE | 2021-02-26 18:30 | NUR ---
Patient in room ICU 2043. I have received report from TEX De La Torre and had the opportunity to ask questions and assume patient care.
--- NOTE | 2021-02-26 18:30 | NUR ---
Note alexandergail in EDM - 02/27/21 at 0029 by JUAN M Pt report received from TEX Navarro. Pt at this time is covered in her own feces, she is completely naked, diaper with feces is on the floor. Pt is not on the monitor, currently in 4 point (wrists and ankle) hard restraints. She is currently on 1.5mcg/kg/min on precedex. Pt at this time is alert, not oriented, talking in noncoherent sentences.
--- NOTE | 2021-02-26 18:55 | NUR ---
Spoke with Dr Holley regarding 24 hour EEG. New orders received.
[2021-02-26 19:32] LABS: ABG BASE EXCESS -5.1 mmol/L (-2.0-2.0); ABG HCO3 20.3 mmol/L (22.0-26.0); ABG PCO2 (T) 34.6 mmHg (32.0-45.0); ABG PO2 (T) 80.7 mmHg (75.0-100.0); FCOHb 0.3 % (0.0-3.9); FMetHb 0.3 % (0.0-1.5); FO2Hb 96.4 % (94-97); PATIENT TEMPERATURE 34.1; PEEP 5 cm H2O; RESPIRATORY RATE 18 b/min; TIDAL VOLUME 450 mL; TOTAL HEMOGLOBIN 14.9 G/dl (12.0-16.0)
[2021-02-26] MEDS: aripiprazole 5mg tablet PO SCH (20:09)
[2021-02-26] MEDS: valproate sod 250mg/5ml UD oral syrup OGT SCH (20:10)
[2021-02-26] MEDS: lithium carbonate 150mg capsule PO SCH (20:10)
[2021-02-26] MEDS: quetiapine 100mg tablet PO SCH (20:11)
[2021-02-26 21:19] LABS: BASOPHILS % (AUTO) 0.3 % (0-1); EOSINOPHILS % (AUTO) 0.2 % (0-6); HEMATOCRIT 41.7 % (35.0-45.0); LYMPHOCYTES # (AUTO) 1.8 X10'3 (1.1-4.8); MEAN CORPUSCULAR HGB CONC 33.6 g/dL (33.0-36.5); MEAN CORPUSCULAR VOLUME 83.3 FL (78-98); MEAN PLATELET VOLUME 7.6 FL (7.4-10.4); NEUTROPHILS % (AUTO) 80.5 % (42-75); PLATELET COUNT 298 X10'3 (140-440); RED CELL DISTRIBUTION WIDTH 12.8 % (11.5-14.5); WHITE BLOOD COUNT 14.9 X10'3 (4.5-11.0)
[2021-02-26 21:41] LABS: ALANINE AMINOTRANSFERASE 444 U/L (12-78); ALBUMIN/GLOBULIN RATIO 0.8 (1.1-1.5); ALKALINE PHOSPHATASE 120 IU/L (46-116); ANION GAP 14 (8-16); ASPARTATE AMINO TRANSFERASE 258 U/L (10-37); BILIRUBIN,TOTAL 0.7 MG/DL (0.1-1.0); BLOOD UREA NITROGEN 7 MG/DL (7-18); BUN/CREATININE RATIO 13.5 (6.6-38.0); CHLORIDE 104 MMOL/L (99-107); CREATININE 0.52 MG/DL (0.40-0.90); GLUCOSE 160 MG/DL (70-104); MAGNESIUM 1.9 MG/DL (1.5-2.4); PHOSPHORUS 3.2 MG/DL (2.3-4.5); SODIUM 142 MMOL/L (135-145); TOTAL CARBON DIOXIDE 24.5 MMOL/L (24-32); TOTAL PROTEIN 6.9 G/DL (6.4-8.2); eGFR > 90 ML/MIN
[2021-02-26] MEDS ORDERED: magnesium 2GM in 50ml NS 50 ML IV PRN (21:55)
[2021-02-26] MEDS: potassium Cl 40MEQ/250ML bag 250 ML IV PRN (22:27)
--- NOTE | 2021-02-26 22:30 | NUR ---
total of 600mL urine output for the last hour. Urine output decreased over the prior two hours, flushed renee and 600mL drained. Notified Dr Cramer, new orders received labs.
[2021-02-27] VITALS (24 sets, daily range): BP systolic 88–117; BP diastolic 49–81
[2021-02-27] MEDS: potassium Cl 40MEQ/250ML bag 250 ML IV PRN (00:15)
[2021-02-27] MEDS: FENTANYL-0.9 % NACL/PF 100 ML IV PRN ×8 (01:12→22:38)
[2021-02-27] MEDS: midazolam 100mg in NS 100ml 100 ML IV PRN ×5 (01:12→21:08)
[2021-02-27] MEDS: NORepinephrine 8mg/ 250ml NS 250 ML IV SCH ×4 (02:28→23:42)
[2021-02-27 02:31] LABS: ABG BASE EXCESS -3.2 mmol/L (-2.0-2.0); ABG HCO3 21.7 mmol/L (22.0-26.0); ABG OXYGEN SATURATION 97.8 % (94-97); ABG PCO2 (T) 33.5 mmHg (32.0-45.0); ABG PO2 (T) 93.3 mmHg (75.0-100.0); FCOHb 0.3 % (0.0-3.9); FMetHb 0.2 % (0.0-1.5); FO2Hb 97.3 % (94-97); PATIENT TEMPERATURE 33.9; PEEP 5 cm H2O; RESPIRATORY RATE 18 b/min; TIDAL VOLUME 450 mL; TOTAL HEMOGLOBIN 14.1 G/dl (12.0-16.0)
[2021-02-27 03:33] LABS: BASOPHILS % (AUTO) 0.2 % (0-1); EOSINOPHILS # (AUTO) 0.1 X10'3 (0-0.9); EOSINOPHILS % (AUTO) 0.9 % (0-6); HEMATOCRIT 39.2 % (35.0-45.0); HEMOGLOBIN 13.3 g/dl (12.0-16.0); LYMPHOCYTES # (AUTO) 1.6 X10'3 (1.1-4.8); LYMPHOCYTES % (AUTO) 13.2 % (21-51); MEAN CORPUSCULAR HEMOGLOBIN 28.2 PG (27.0-31.0); MEAN CORPUSCULAR VOLUME 82.9 FL (78-98); MEAN PLATELET VOLUME 7.4 FL (7.4-10.4); NEUTROPHILS # (AUTO) 9.7 X10'3 (1.8-7.7); NEUTROPHILS % (AUTO) 77.7 % (42-75); PLATELET COUNT 296 X10'3 (140-440); RED BLOOD COUNT 4.73 X10'6 (4.20-5.60); RED CELL DISTRIBUTION WIDTH 12.8 % (11.5-14.5); WHITE BLOOD COUNT 12.5 X10'3 (4.5-11.0)
[2021-02-27 03:46] LABS: ALANINE AMINOTRANSFERASE 366 U/L (12-78); ALBUMIN 2.6 G/DL (3.4-5.0); ALBUMIN/GLOBULIN RATIO 0.7 (1.1-1.5); ALKALINE PHOSPHATASE 108 IU/L (46-116); ANION GAP 10 (8-16); ASPARTATE AMINO TRANSFERASE 152 U/L (10-37); BILIRUBIN,TOTAL 0.7 MG/DL (0.1-1.0); BLOOD UREA NITROGEN 5 MG/DL (7-18); BUN/CREATININE RATIO 10.6 (6.6-38.0); CALCIUM 7.7 MG/DL (8.5-10.1); CHLORIDE 109 MMOL/L (99-107); CREATININE 0.47 MG/DL (0.40-0.90); GLUCOSE 130 MG/DL (70-104); SODIUM 144 MMOL/L (135-145); TOTAL CARBON DIOXIDE 24.7 MMOL/L (24-32); TOTAL PROTEIN 6.2 G/DL (6.4-8.2); eGFR > 90 ML/MIN
[2021-02-27 03:55] LABS: MAGNESIUM 1.9 MG/DL (1.5-2.4); PHOSPHORUS 2.9 MG/DL (2.3-4.5); TRIGLYCERIDES 92 MG/DL (20-135)
[2021-02-27] MEDS: magnesium 4gm in 100ml NS 100 ML IV PRN ×2 (04:32→20:17)
--- NOTE | 2021-02-27 06:10 | NUR ---
Problems reprioritized. Patient report given, questions answered & plan of care reviewed with Britt NICE.
[2021-02-27] MEDS: dexmedetomidine/D5W 100mL 100 ML IV SCH ×2 (06:16→15:22)
--- NOTE | 2021-02-27 06:37 | NUR ---
Patient in room ICU 2043. I have received report from Юлия NICE and had the opportunity to ask questions and assume patient care.
[2021-02-27] MEDS: pantoprazole 40 MG vial IV SCH (07:28)
[2021-02-27] MEDS: enoxaparin 40mg/0.4ml syringe SUBCUT SCH (07:28)
[2021-02-27] MEDS: valproate sod 250mg/5ml UD oral syrup OGT SCH ×2 (07:29→20:12)
[2021-02-27] MEDS: quetiapine 100mg tablet PO SCH ×3 (07:29→20:12)
[2021-02-27] MEDS: aripiprazole 5mg tablet PO SCH ×2 (07:33→20:11)
--- NOTE | 2021-02-27 08:30 | NUR ---
Dr Rojas by to round on patient went over labs and meds. Ordered a liter NS bolus and to DC 20Meq liter bag once this bag is finished. No other new orders at this time
[2021-02-27 08:43] LABS: BASOPHILS % (AUTO) 0.4 % (0-1); EOSINOPHILS # (AUTO) 0.2 X10'3 (0-0.9); EOSINOPHILS % (AUTO) 1.7 % (0-6); HEMATOCRIT 40.9 % (35.0-45.0); HEMOGLOBIN 13.5 g/dl (12.0-16.0); LYMPHOCYTES # (AUTO) 1.5 X10'3 (1.1-4.8); LYMPHOCYTES % (AUTO) 16.2 % (21-51); MEAN CORPUSCULAR HEMOGLOBIN 27.9 PG (27.0-31.0); MEAN CORPUSCULAR HGB CONC 33.1 g/dL (33.0-36.5); MEAN CORPUSCULAR VOLUME 84.3 FL (78-98); MEAN PLATELET VOLUME 7.3 FL (7.4-10.4); MONOCYTES # (AUTO) 0.9 X10'3 (0-0.9); MONOCYTES % (AUTO) 10.1 % (2-12); NEUTROPHILS # (AUTO) 6.6 X10'3 (1.8-7.7); NEUTROPHILS % (AUTO) 71.6 % (42-75); PLATELET COUNT 286 X10'3 (140-440); RED BLOOD COUNT 4.85 X10'6 (4.20-5.60); RED CELL DISTRIBUTION WIDTH 12.8 % (11.5-14.5); WHITE BLOOD COUNT 9.3 X10'3 (4.5-11.0)
[2021-02-27 09:01] LABS: ALANINE AMINOTRANSFERASE 337 U/L (12-78); ALBUMIN 2.4 G/DL (3.4-5.0); ALBUMIN/GLOBULIN RATIO 0.7 (1.1-1.5); ALKALINE PHOSPHATASE 104 IU/L (46-116); ANION GAP 7 (8-16); ASPARTATE AMINO TRANSFERASE 135 U/L (10-37); BILIRUBIN,TOTAL 0.8 MG/DL (0.1-1.0); BLOOD UREA NITROGEN 4 MG/DL (7-18); BUN/CREATININE RATIO 7.1 (6.6-38.0); CALCIUM 7.8 MG/DL (8.5-10.1); CHLORIDE 108 MMOL/L (99-107); CREATININE 0.56 MG/DL (0.40-0.90); GLUCOSE 136 MG/DL (70-104); POTASSIUM 3.5 MMOL/L (3.5-5.1); SODIUM 141 MMOL/L (135-145); TOTAL CARBON DIOXIDE 25.8 MMOL/L (24-32); TOTAL PROTEIN 5.9 G/DL (6.4-8.2); eGFR > 90 ML/MIN
[2021-02-27 09:30] LABS: MAGNESIUM 4.8 MG/DL (1.5-2.4)
[2021-02-27 09:31] LABS: PHOSPHORUS 2.5 MG/DL (2.3-4.5)
[2021-02-27] MEDS: normal saline 1000ml 1,000 ML IV SCH ×3 (11:07→23:43)
[2021-02-27] MEDS: ziprasidone IM 20mg inj **IM only IM SCH (11:09)
--- NOTE | 2021-02-27 11:37 | NUR ---
Initial: Pt admitted w/ ongoing post- psychosis per EMR. Pt initially on regular diet w/ ~75% intake of first 2 meals on 02/23. Code blue called 02/26 and pt intubated. Pt remains intubated though may get extubated in 1-2 days per MD. No documentation of LBM. Will continue to monitor need for nutrition support if prolonged intubation and make recommendations as appropriate. Recs: 1) Upon extubation, advance to Regular diet as medically indicated 2) IF prolonged intubation, Continuous TF using Vital High Protein at 70ml/hr 3) IF out of Vital High Protein, sub Vital AF at 60ml/hr 4) IF TF, Additional water flush 100ml Q4H; monitor serum Na 5) IF TF, PALB QM/Th; daily wts 6) Routine bowel care Addendum: 02/27/21 at [address] RD Amended: Links added.
[2021-02-27] MEDS ORDERED: normal saline 1000ml 1,000 ML IV ONE ×2 (12:15→15:10)
[2021-02-27] MEDS ORDERED: metoprolol tartrate 1mg/ml inj IV ONE (12:15)
[2021-02-27 14:42] LABS: BASOPHILS % (AUTO) 0.2 % (0-1); EOSINOPHILS # (AUTO) 0.2 X10'3 (0-0.9); EOSINOPHILS % (AUTO) 1.2 % (0-6); HEMATOCRIT 42.2 % (35.0-45.0); HEMOGLOBIN 13.6 g/dl (12.0-16.0); LYMPHOCYTES # (AUTO) 1.7 X10'3 (1.1-4.8); LYMPHOCYTES % (AUTO) 10.3 % (21-51); MEAN CORPUSCULAR HEMOGLOBIN 27.4 PG (27.0-31.0); MEAN CORPUSCULAR HGB CONC 32.3 g/dL (33.0-36.5); MEAN CORPUSCULAR VOLUME 85.1 FL (78-98); MEAN PLATELET VOLUME 7.6 FL (7.4-10.4); MONOCYTES # (AUTO) 1.4 X10'3 (0-0.9); MONOCYTES % (AUTO) 8.3 % (2-12); NEUTROPHILS # (AUTO) 13.2 X10'3 (1.8-7.7); PLATELET COUNT 318 X10'3 (140-440); RED BLOOD COUNT 4.96 X10'6 (4.20-5.60); RED CELL DISTRIBUTION WIDTH 12.8 % (11.5-14.5); WHITE BLOOD COUNT 16.5 X10'3 (4.5-11.0)
[2021-02-27 14:57] LABS: ALANINE AMINOTRANSFERASE 317 U/L (12-78); ALBUMIN 2.4 G/DL (3.4-5.0); ALBUMIN/GLOBULIN RATIO 0.7 (1.1-1.5); ALKALINE PHOSPHATASE 101 IU/L (46-116); ANION GAP 10 (8-16); ASPARTATE AMINO TRANSFERASE 98 U/L (10-37); BILIRUBIN,TOTAL 0.6 MG/DL (0.1-1.0); BLOOD UREA NITROGEN 5 MG/DL (7-18); BUN/CREATININE RATIO 10.2 (6.6-38.0); CALCIUM 7.5 MG/DL (8.5-10.1); CHLORIDE 113 MMOL/L (99-107); CREATININE 0.49 MG/DL (0.40-0.90); GLUCOSE 142 MG/DL (70-104); POTASSIUM 3.8 MMOL/L (3.5-5.1); SODIUM 146 MMOL/L (135-145); TOTAL CARBON DIOXIDE 23.1 MMOL/L (24-32); TOTAL PROTEIN 5.8 G/DL (6.4-8.2); eGFR > 90 ML/MIN
[2021-02-27 15:08] LABS: MAGNESIUM 2.2 MG/DL (1.5-2.4); PHOSPHORUS 2.9 MG/DL (2.3-4.5)
--- NOTE | 2021-02-27 15:12 | NUR ---
spoke to Dr. Rojas in regards to the patients decreasing urine output. Informed him her CVP was 8 and that her urine output this last hour dropped to 5mls. Stated to give her another 1 liter bolus
[2021-02-27] MEDS: CISatracurium besylate inj. 100 MG in normal saline 100ml IV soln 90 ML IV PRN ×2 (15:28→22:55)
[2021-02-27] MEDS ORDERED: albumin (Human) 5% 250ml 250 ML IV ONE (15:50)
[2021-02-27] MEDS ORDERED: furosemide 40mg/4ml inj IV ONE (15:50)
[2021-02-27] MEDS ORDERED: potassium Cl 20 mEq/100mL bag IV ONE (15:50)
--- NOTE | 2021-02-27 18:30 | NUR ---
Patient in room ICU 2043. I have received report from Brtit NICE and had the opportunity to ask questions and assume patient care.
[2021-02-27 19:38] LABS: BASOPHILS # (AUTO) 0.1 X10'3 (0-0.2); BASOPHILS % (AUTO) 0.4 % (0-1); EOSINOPHILS # (AUTO) 0.2 X10'3 (0-0.9); EOSINOPHILS % (AUTO) 1.3 % (0-6); HEMATOCRIT 39.9 % (35.0-45.0); HEMOGLOBIN 13.4 g/dl (12.0-16.0); LYMPHOCYTES # (AUTO) 2.2 X10'3 (1.1-4.8); LYMPHOCYTES % (AUTO) 15.5 % (21-51); MEAN CORPUSCULAR HGB CONC 33.7 g/dL (33.0-36.5); MEAN CORPUSCULAR VOLUME 83.2 FL (78-98); MEAN PLATELET VOLUME 7.6 FL (7.4-10.4); MONOCYTES # (AUTO) 1.1 X10'3 (0-0.9); MONOCYTES % (AUTO) 7.8 % (2-12); NEUTROPHILS # (AUTO) 10.9 X10'3 (1.8-7.7); PLATELET COUNT 331 X10'3 (140-440); RED BLOOD COUNT 4.79 X10'6 (4.20-5.60); RED CELL DISTRIBUTION WIDTH 13.3 % (11.5-14.5); WHITE BLOOD COUNT 14.5 X10'3 (4.5-11.0)
[2021-02-27 19:52] LABS: ALANINE AMINOTRANSFERASE 282 U/L (12-78); ALBUMIN 2.6 G/DL (3.4-5.0); ALBUMIN/GLOBULIN RATIO 0.7 (1.1-1.5); ALKALINE PHOSPHATASE 98 IU/L (46-116); ANION GAP 13 (8-16); ASPARTATE AMINO TRANSFERASE 74 U/L (10-37); BILIRUBIN,TOTAL 0.6 MG/DL (0.1-1.0); BLOOD UREA NITROGEN 5 MG/DL (7-18); BUN/CREATININE RATIO 8.8 (6.6-38.0); CALCIUM 7.7 MG/DL (8.5-10.1); CHLORIDE 111 MMOL/L (99-107); CREATININE 0.57 MG/DL (0.40-0.90); GLUCOSE 156 MG/DL (70-104); POTASSIUM 3.7 MMOL/L (3.5-5.1); SODIUM 146 MMOL/L (135-145); TOTAL CARBON DIOXIDE 21.6 MMOL/L (24-32); TOTAL PROTEIN 6.1 G/DL (6.4-8.2); eGFR > 90 ML/MIN
[2021-02-27 20:02] LABS: PHOSPHORUS 2.3 MG/DL (2.3-4.5)
[2021-02-27] MEDS: potassium Cl 20mEq/100mL bag 100 ML IV PRN ×2 (20:02→20:59)
[2021-02-27] MEDS: lithium carbonate 150mg capsule PO SCH (20:12)
[2021-02-28] VITALS (25 sets, daily range): BP systolic 84–130; BP diastolic 43–92
[2021-02-28] MEDS: dexmedetomidine/D5W 100mL 100 ML IV SCH (00:28)
[2021-02-28] MEDS: FENTANYL-0.9 % NACL/PF 100 ML IV PRN ×4 (01:41→20:32)
[2021-02-28 02:35] LABS: BASOPHILS % (AUTO) 0.4 % (0-1); EOSINOPHILS # (AUTO) 0.3 X10'3 (0-0.9); EOSINOPHILS % (AUTO) 2.4 % (0-6); HEMATOCRIT 40.5 % (35.0-45.0); HEMOGLOBIN 13.1 g/dl (12.0-16.0); LYMPHOCYTES # (AUTO) 2.1 X10'3 (1.1-4.8); LYMPHOCYTES % (AUTO) 17.1 % (21-51); MEAN CORPUSCULAR HEMOGLOBIN 27.5 PG (27.0-31.0); MEAN CORPUSCULAR HGB CONC 32.5 g/dL (33.0-36.5); MEAN CORPUSCULAR VOLUME 84.8 FL (78-98); MEAN PLATELET VOLUME 7.7 FL (7.4-10.4); MONOCYTES # (AUTO) 1.2 X10'3 (0-0.9); MONOCYTES % (AUTO) 10.3 % (2-12); NEUTROPHILS # (AUTO) 8.4 X10'3 (1.8-7.7); NEUTROPHILS % (AUTO) 69.8 % (42-75); PLATELET COUNT 324 X10'3 (140-440); RED BLOOD COUNT 4.77 X10'6 (4.20-5.60); RED CELL DISTRIBUTION WIDTH 13.1 % (11.5-14.5); WHITE BLOOD COUNT 12.1 X10'3 (4.5-11.0)
[2021-02-28 02:48] LABS: ALANINE AMINOTRANSFERASE 244 U/L (12-78); ALBUMIN 2.4 G/DL (3.4-5.0); ALBUMIN/GLOBULIN RATIO 0.7 (1.1-1.5); ALKALINE PHOSPHATASE 96 IU/L (46-116); ANION GAP 10 (8-16); ASPARTATE AMINO TRANSFERASE 49 U/L (10-37); BILIRUBIN,TOTAL 0.6 MG/DL (0.1-1.0); BLOOD UREA NITROGEN 3 MG/DL (7-18); BUN/CREATININE RATIO 5.3 (6.6-38.0); CALCIUM 7.9 MG/DL (8.5-10.1); CHLORIDE 112 MMOL/L (99-107); CREATININE 0.57 MG/DL (0.40-0.90); GLUCOSE 123 MG/DL (70-104); POTASSIUM 3.8 MMOL/L (3.5-5.1); SODIUM 145 MMOL/L (135-145); TOTAL CARBON DIOXIDE 22.7 MMOL/L (24-32); TOTAL PROTEIN 5.9 G/DL (6.4-8.2); eGFR > 90 ML/MIN
[2021-02-28 02:58] LABS: MAGNESIUM 2.8 MG/DL (1.5-2.4); PHOSPHORUS 2.7 MG/DL (2.3-4.5)
[2021-02-28] MEDS: NORepinephrine 8mg/ 250ml NS 250 ML IV SCH ×5 (03:02→20:19)
[2021-02-28] MEDS: midazolam 100mg in NS 100ml 100 ML IV PRN ×4 (03:29→19:51)
[2021-02-28 03:52] LABS: ABG BASE EXCESS -4.9 mmol/L (-2.0-2.0); ABG HCO3 21.7 mmol/L (22.0-26.0); ABG OXYGEN SATURATION 96.9 % (94-97); ABG PCO2 (T) 41.1 mmHg (32.0-45.0); ABG PO2 (T) 85.5 mmHg (75.0-100.0); ALLEN'S TEST POSITIVE; FCOHb 0.3 % (0.0-3.9); FMetHb 0.4 % (0.0-1.5); FO2Hb 96.2 % (94-97); PATIENT TEMPERATURE 34.5; PEEP 5 cm H2O; RESPIRATORY RATE 18 b/min; TIDAL VOLUME 450 mL
[2021-02-28] MEDS: normal saline 1000ml 1,000 ML IV SCH ×3 (04:57→19:52)
[2021-02-28] MEDS: piperacillin/tazo 3.375gm/50ml 50 ML IV SCH ×3 (05:37→15:44)
--- NOTE | 2021-02-28 06:15 | NUR ---
Problems reprioritized. Patient report given, questions answered & plan of care reviewed with Antwan NICE.
[2021-02-28] MEDS: aripiprazole 5mg tablet PO SCH ×2 (08:23→19:52)
[2021-02-28] MEDS: enoxaparin 40mg/0.4ml syringe SUBCUT SCH (08:23)
[2021-02-28] MEDS: pantoprazole 40 MG vial IV SCH (08:25)
[2021-02-28] MEDS: valproate sod 250mg/5ml UD oral syrup OGT SCH ×2 (08:27→21:49)
[2021-02-28] MEDS: ziprasidone IM 20mg inj **IM only IM SCH (08:39)
[2021-02-28 10:35] LABS: BASOPHILS # (AUTO) 0.1 X10'3 (0-0.2); BASOPHILS % (AUTO) 0.7 % (0-1); EOSINOPHILS # (AUTO) 0.3 X10'3 (0-0.9); EOSINOPHILS % (AUTO) 2.8 % (0-6); HEMATOCRIT 37.5 % (35.0-45.0); HEMOGLOBIN 12.1 g/dl (12.0-16.0); LYMPHOCYTES # (AUTO) 1.7 X10'3 (1.1-4.8); LYMPHOCYTES % (AUTO) 14.2 % (21-51); MEAN CORPUSCULAR HEMOGLOBIN 27.6 PG (27.0-31.0); MEAN CORPUSCULAR HGB CONC 32.2 g/dL (33.0-36.5); MEAN CORPUSCULAR VOLUME 85.7 FL (78-98); MEAN PLATELET VOLUME 7.8 FL (7.4-10.4); MONOCYTES # (AUTO) 1.3 X10'3 (0-0.9); MONOCYTES % (AUTO) 10.8 % (2-12); NEUTROPHILS # (AUTO) 8.4 X10'3 (1.8-7.7); NEUTROPHILS % (AUTO) 71.5 % (42-75); PLATELET COUNT 304 X10'3 (140-440); RED BLOOD COUNT 4.38 X10'6 (4.20-5.60); RED CELL DISTRIBUTION WIDTH 13.4 % (11.5-14.5); WHITE BLOOD COUNT 11.7 X10'3 (4.5-11.0)
[2021-02-28 10:47] LABS: ALANINE AMINOTRANSFERASE 192 U/L (12-78); ALBUMIN 2.2 G/DL (3.4-5.0); ALBUMIN/GLOBULIN RATIO 0.7 (1.1-1.5); ALKALINE PHOSPHATASE 89 IU/L (46-116); ANION GAP 12 (8-16); ASPARTATE AMINO TRANSFERASE 36 U/L (10-37); BILIRUBIN,TOTAL 0.6 MG/DL (0.1-1.0); BLOOD UREA NITROGEN 3 MG/DL (7-18); CALCIUM 7.8 MG/DL (8.5-10.1); CHLORIDE 114 MMOL/L (99-107); GLUCOSE 105 MG/DL (70-104); POTASSIUM 3.9 MMOL/L (3.5-5.1); SODIUM 147 MMOL/L (135-145); TOTAL CARBON DIOXIDE 21.4 MMOL/L (24-32); TOTAL PROTEIN 5.5 G/DL (6.4-8.2); eGFR > 90 ML/MIN
[2021-02-28] MEDS ORDERED: metoprolol tartrate 1mg/ml inj IV ONE ×2 (12:01→12:10)
[2021-02-28] MEDS: acetaminophen 325mg tablet PO PRN (12:55)
[2021-02-28 16:28] LABS: BASOPHILS # (AUTO) 0.1 X10'3 (0-0.2); BASOPHILS % (AUTO) 0.6 % (0-1); EOSINOPHILS # (AUTO) 0.2 X10'3 (0-0.9); EOSINOPHILS % (AUTO) 1.8 % (0-6); HEMATOCRIT 35.9 % (35.0-45.0); HEMOGLOBIN 11.9 g/dl (12.0-16.0); LYMPHOCYTES # (AUTO) 1.9 X10'3 (1.1-4.8); LYMPHOCYTES % (AUTO) 15.4 % (21-51); MEAN CORPUSCULAR HEMOGLOBIN 27.7 PG (27.0-31.0); MEAN CORPUSCULAR HGB CONC 33.1 g/dL (33.0-36.5); MEAN CORPUSCULAR VOLUME 83.8 FL (78-98); MEAN PLATELET VOLUME 7.7 FL (7.4-10.4); MONOCYTES # (AUTO) 0.9 X10'3 (0-0.9); MONOCYTES % (AUTO) 7.8 % (2-12); NEUTROPHILS % (AUTO) 74.4 % (42-75); PLATELET COUNT 321 X10'3 (140-440); RED BLOOD COUNT 4.29 X10'6 (4.20-5.60); RED CELL DISTRIBUTION WIDTH 13.1 % (11.5-14.5); WHITE BLOOD COUNT 12.1 X10'3 (4.5-11.0)
[2021-02-28 16:39] LABS: ALANINE AMINOTRANSFERASE 178 U/L (12-78); ALBUMIN 2.2 G/DL (3.4-5.0); ALBUMIN/GLOBULIN RATIO 0.6 (1.1-1.5); ALKALINE PHOSPHATASE 90 IU/L (46-116); ANION GAP 12 (8-16); ASPARTATE AMINO TRANSFERASE 30 U/L (10-37); BILIRUBIN,TOTAL 0.6 MG/DL (0.1-1.0); BLOOD UREA NITROGEN 3 MG/DL (7-18); BUN/CREATININE RATIO 4.5 (6.6-38.0); CHLORIDE 113 MMOL/L (99-107); CREATININE 0.66 MG/DL (0.40-0.90); GLUCOSE 110 MG/DL (70-104); POTASSIUM 4.1 MMOL/L (3.5-5.1); SODIUM 147 MMOL/L (135-145); TOTAL CARBON DIOXIDE 22.5 MMOL/L (24-32); TOTAL PROTEIN 5.7 G/DL (6.4-8.2); eGFR > 90 ML/MIN
[2021-02-28 16:48] LABS: MAGNESIUM 1.8 MG/DL (1.5-2.4); PHOSPHORUS 3.1 MG/DL (2.3-4.5)
[2021-02-28] MEDS: lactobacillus rhamnosus 10,000 MMU CELLS/CAPSULE PO SCH (19:52)
[2021-02-28 21:51] LABS: ALANINE AMINOTRANSFERASE 155 U/L (12-78); ALBUMIN/GLOBULIN RATIO 0.6 (1.1-1.5); ALKALINE PHOSPHATASE 84 IU/L (46-116); ANION GAP 12 (8-16); ASPARTATE AMINO TRANSFERASE 27 U/L (10-37); BILIRUBIN,TOTAL 0.6 MG/DL (0.1-1.0); BLOOD UREA NITROGEN 2 MG/DL (7-18); BUN/CREATININE RATIO 3.2 (6.6-38.0); CALCIUM 7.8 MG/DL (8.5-10.1); CHLORIDE 113 MMOL/L (99-107); CREATININE 0.63 MG/DL (0.40-0.90); GLUCOSE 87 MG/DL (70-104); POTASSIUM 3.7 MMOL/L (3.5-5.1); SODIUM 147 MMOL/L (135-145); TOTAL CARBON DIOXIDE 21.7 MMOL/L (24-32); TOTAL PROTEIN 5.4 G/DL (6.4-8.2); eGFR > 90 ML/MIN
[2021-02-28] MEDS: lithium carbonate 150mg capsule PO SCH (21:53)
[2021-02-28 22:03] LABS: MAGNESIUM 1.6 MG/DL (1.5-2.4); PHOSPHORUS 3.5 MG/DL (2.3-4.5)
[2021-02-28] MEDS: potassium Cl 40MEQ/250ML bag 250 ML IV PRN (22:55)
[2021-03-01] VITALS (22 sets, daily range): BP systolic 92–132; BP diastolic 52–95
[2021-03-01 00:08] LABS: BASOPHILS # (AUTO) 0.1 X10'3 (0-0.2)
[2021-03-01 00:10] LABS: BASOPHILS % (AUTO) 0.4 % (0-1); EOSINOPHILS # (AUTO) 0.2 X10'3 (0-0.9); EOSINOPHILS % (AUTO) 1.9 % (0-6); HEMATOCRIT 35.9 % (35.0-45.0); HEMOGLOBIN 12.1 g/dl (12.0-16.0); LYMPHOCYTES # (AUTO) 1.7 X10'3 (1.1-4.8); LYMPHOCYTES % (AUTO) 14.1 % (21-51); MEAN CORPUSCULAR HEMOGLOBIN 28.3 PG (27.0-31.0); MEAN CORPUSCULAR HGB CONC 33.7 g/dL (33.0-36.5); MEAN CORPUSCULAR VOLUME 83.8 FL (78-98); MEAN PLATELET VOLUME 7.5 FL (7.4-10.4); MONOCYTES # (AUTO) 0.9 X10'3 (0-0.9); MONOCYTES % (AUTO) 7.9 % (2-12); NEUTROPHILS % (AUTO) 75.7 % (42-75); PLATELET COUNT 306 X10'3 (140-440); RED BLOOD COUNT 4.28 X10'6 (4.20-5.60); RED CELL DISTRIBUTION WIDTH 13.3 % (11.5-14.5); WHITE BLOOD COUNT 11.9 X10'3 (4.5-11.0)
[2021-03-01] MEDS ORDERED: metoprolol tartrate 1mg/ml inj IV ONE ×2 (00:40→00:44)
[2021-03-01] MEDS: piperacillin/tazo 3.375gm/50ml 50 ML IV SCH ×3 (00:59→16:00)
[2021-03-01] MEDS: FENTANYL-0.9 % NACL/PF 100 ML IV PRN ×3 (02:07→20:51)
[2021-03-01] MEDS ORDERED: dextrose 50%-water 50ml dispensing syringe IV ONE ×2 (02:25→08:46)
[2021-03-01] MEDS: normal saline 1000ml 1,000 ML IV SCH (02:29)
[2021-03-01] MEDS: midazolam 100mg in NS 100ml 100 ML IV PRN ×2 (03:24→20:52)
[2021-03-01 04:22] LABS: ABG BASE EXCESS -1.4 mmol/L (-2.0-2.0); ABG HCO3 24.1 mmol/L (22.0-26.0); ABG OXYGEN SATURATION 98.5 % (94-97); ABG PO2 (T) 129.3 mmHg (75.0-100.0); ALLEN'S TEST POSITIVE; FCOHb 0.3 % (0.0-3.9); FMetHb 0.4 % (0.0-1.5); FO2Hb 97.8 % (94-97); PATIENT TEMPERATURE 36.5; PEEP 5 cm H2O; RESPIRATORY RATE 18 b/min; TIDAL VOLUME 450 mL; TOTAL HEMOGLOBIN 12.4 G/dl (12.0-16.0)
[2021-03-01] MEDS ORDERED: sodium chloride inj. 154 MEQ in Dextrose 10%-water IV solution 961.5 ML IV SCH (04:30)
[2021-03-01 04:48] LABS: BASOPHILS % (AUTO) 0.3 % (0-1); EOSINOPHILS # (AUTO) 0.1 X10'3 (0-0.9); EOSINOPHILS % (AUTO) 1.2 % (0-6); HEMATOCRIT 34.6 % (35.0-45.0); HEMOGLOBIN 11.4 g/dl (12.0-16.0); LYMPHOCYTES # (AUTO) 1.3 X10'3 (1.1-4.8); LYMPHOCYTES % (AUTO) 11.7 % (21-51); MEAN CORPUSCULAR HEMOGLOBIN 27.8 PG (27.0-31.0); MEAN CORPUSCULAR HGB CONC 32.9 g/dL (33.0-36.5); MEAN CORPUSCULAR VOLUME 84.5 FL (78-98); MEAN PLATELET VOLUME 7.7 FL (7.4-10.4); MONOCYTES # (AUTO) 0.8 X10'3 (0-0.9); MONOCYTES % (AUTO) 7.6 % (2-12); NEUTROPHILS # (AUTO) 8.7 X10'3 (1.8-7.7); NEUTROPHILS % (AUTO) 79.2 % (42-75); PLATELET COUNT 270 X10'3 (140-440); RED CELL DISTRIBUTION WIDTH 13.3 % (11.5-14.5); WHITE BLOOD COUNT 10.9 X10'3 (4.5-11.0)
[2021-03-01 04:53] LABS: ALANINE AMINOTRANSFERASE 145 U/L (12-78); ALBUMIN 2.2 G/DL (3.4-5.0); ALBUMIN/GLOBULIN RATIO 0.6 (1.1-1.5); ALKALINE PHOSPHATASE 87 IU/L (46-116); ANION GAP 8 (8-16); ASPARTATE AMINO TRANSFERASE 26 U/L (10-37); BILIRUBIN,TOTAL 0.6 MG/DL (0.1-1.0); BLOOD UREA NITROGEN 2 MG/DL (7-18); CALCIUM 8.5 MG/DL (8.5-10.1); CHLORIDE 111 MMOL/L (99-107); CREATININE 0.67 MG/DL (0.40-0.90); GLUCOSE 74 MG/DL (70-104); POTASSIUM 3.9 MMOL/L (3.5-5.1); SODIUM 145 MMOL/L (135-145); TOTAL CARBON DIOXIDE 26.1 MMOL/L (24-32); TOTAL PROTEIN 5.7 G/DL (6.4-8.2); eGFR > 90 ML/MIN
[2021-03-01 05:02] LABS: MAGNESIUM 1.7 MG/DL (1.5-2.4); PHOSPHORUS 2.9 MG/DL (2.3-4.5)
[2021-03-01] MEDS: valproate sod 250mg/5ml UD oral syrup OGT SCH ×3 (08:00→20:57)
[2021-03-01] MEDS: enoxaparin 40mg/0.4ml syringe SUBCUT SCH (08:58)
[2021-03-01] MEDS: pantoprazole 40 MG vial IV SCH (08:58)
[2021-03-01] MEDS: lactobacillus rhamnosus 10,000 MMU CELLS/CAPSULE PO SCH ×2 (08:59→20:55)
[2021-03-01] MEDS: aripiprazole 5mg tablet PO SCH ×3 (08:59→20:54)
[2021-03-01] MEDS: ziprasidone IM 20mg inj **IM only IM SCH (09:00)
--- NOTE | 2021-03-01 11:44 | NUR ---
TF Consult: Pt failed SBT this AM per RT note remains intubated w/ OG in place. RN reports low GLU s/p D50 w/ Glu in low 100's pending documentation. TF not to start unless unable to extubate today per metallurgical specialist at rounds; recs below given needs. Day 5 no nutrition. Given no nutrition 5 days and general +2 edema pt meets minimum non-severe malnutrition criteria; MD notified. IF extubation; would benefit from AUTOMATIC SHIRRING MACHINE OPERATOR BSS. IF unable to tolerate PO given ALOC would benefit from NG for nutrition/meds given functional gut. Will continue to monitor. Recs: 1) IF prolonged intubation, Continuous TF using Vital High Protein at 70ml/hr 2) IF TF, Additional water flush 100ml Q4H; monitor serum Na 3) IF TF, PALB QM/Th; daily wts 4) Routine bowel care 5) Upon extubation, advance to Regular diet per AUTOMATIC SHIRRING MACHINE OPERATOR/MD recs as medically indicated 6) IF too ALOC for PO upon extubation; consider NG for nutrition/meds given functional gut Addendum: 03/01/21 at [address] Amended: Links added.
[2021-03-01 12:28] LABS: ALBUMIN, UR 50.5 % (.); ALPHA-1-GLOBULIN,UR 2.9 % (.); BETA GLOBULIN, UR 14.2 % (.); GAMMA GLOBULIN,UR 20.3 % (.); PROTEIN,TOTAL,URINE 11.2 mg/dL (Not Estab.)
[2021-03-01] MEDS: lithium carbonate 150mg capsule PO SCH (20:54)
[2021-03-01] MEDS: Dextrose 10%-water IV solution 1,000 ML IV SCH (20:55)
[2021-03-02] VITALS (23 sets, daily range): BP systolic 91–129; BP diastolic 49–87
[2021-03-02] MEDS: piperacillin/tazo 3.375gm/50ml 50 ML IV SCH ×3 (00:05→16:31)
[2021-03-02] MEDS: acetaminophen 325mg tablet PO PRN (00:15)
[2021-03-02 03:06] LABS: ABG BASE EXCESS 2.8 mmol/L (-2.0-2.0); ABG HCO3 27.2 mmol/L (22.0-26.0); ABG OXYGEN SATURATION 97.8 % (94-97); ABG PCO2 (T) 40.4 mmHg (32.0-45.0); ABG PO2 (T) 100.4 mmHg (75.0-100.0); ALLEN'S TEST POSITIVE; FCOHb 0.3 % (0.0-3.9); FMetHb 0.4 % (0.0-1.5); FO2Hb 97.1 % (94-97); PATIENT TEMPERATURE 36.6; PEEP 5 cm H2O; RESPIRATORY RATE 18 b/min; TIDAL VOLUME 450 mL; TOTAL HEMOGLOBIN 12.4 G/dl (12.0-16.0)
[2021-03-02] MEDS: NORepinephrine 8mg/ 250ml NS 250 ML IV SCH ×2 (03:16→04:14)
[2021-03-02] MEDS: FENTANYL-0.9 % NACL/PF 100 ML IV PRN (04:00)
[2021-03-02] MEDS: Dextrose 10%-water IV solution 1,000 ML IV SCH (04:00)
--- NOTE | 2021-03-02 05:17 | NUR ---
Hung care provided x2
[2021-03-02 06:08] LABS: BASOPHILS # (AUTO) 0.1 X10'3 (0-0.2); BASOPHILS % (AUTO) 0.7 % (0-1); EOSINOPHILS # (AUTO) 0.1 X10'3 (0-0.9); EOSINOPHILS % (AUTO) 1.2 % (0-6); HEMATOCRIT 33.3 % (35.0-45.0); HEMOGLOBIN 11.2 g/dl (12.0-16.0); LYMPHOCYTES # (AUTO) 1.1 X10'3 (1.1-4.8); LYMPHOCYTES % (AUTO) 12.6 % (21-51); MEAN CORPUSCULAR HEMOGLOBIN 28.1 PG (27.0-31.0); MEAN CORPUSCULAR HGB CONC 33.7 g/dL (33.0-36.5); MEAN CORPUSCULAR VOLUME 83.5 FL (78-98); MEAN PLATELET VOLUME 8.1 FL (7.4-10.4); MONOCYTES # (AUTO) 0.5 X10'3 (0-0.9); MONOCYTES % (AUTO) 5.5 % (2-12); NEUTROPHILS # (AUTO) 6.8 X10'3 (1.8-7.7); PLATELET COUNT 278 X10'3 (140-440); RED BLOOD COUNT 3.98 X10'6 (4.20-5.60); RED CELL DISTRIBUTION WIDTH 13.4 % (11.5-14.5); WHITE BLOOD COUNT 8.4 X10'3 (4.5-11.0)
--- NOTE | 2021-03-02 06:12 | NUR ---
rEPORT GIVEN TO Benito/TEX
[2021-03-02 06:30] LABS: ALANINE AMINOTRANSFERASE 98 U/L (12-78); ALBUMIN/GLOBULIN RATIO 0.5 (1.1-1.5); ALKALINE PHOSPHATASE 79 IU/L (46-116); ANION GAP 11 (8-16); ASPARTATE AMINO TRANSFERASE 39 U/L (10-37); BILIRUBIN,TOTAL 0.5 MG/DL (0.1-1.0); BLOOD UREA NITROGEN 3 MG/DL (7-18); BUN/CREATININE RATIO 4.3 (6.6-38.0); CALCIUM 8.6 MG/DL (8.5-10.1); CHLORIDE 103 MMOL/L (99-107); CREATININE 0.69 MG/DL (0.40-0.90); GLUCOSE 153 MG/DL (70-104); MAGNESIUM 1.5 MG/DL (1.5-2.4); PHOSPHORUS 3.4 MG/DL (2.3-4.5); POTASSIUM 3.1 MMOL/L (3.5-5.1); SODIUM 143 MMOL/L (135-145); TOTAL CARBON DIOXIDE 28.9 MMOL/L (24-32); TOTAL PROTEIN 5.7 G/DL (6.4-8.2); eGFR > 90 ML/MIN
[2021-03-02] MEDS: aripiprazole 5mg tablet PO SCH (08:00)
[2021-03-02] MEDS: lactobacillus rhamnosus 10,000 MMU CELLS/CAPSULE PO SCH ×2 (08:26→21:34)
[2021-03-02] MEDS: ziprasidone IM 20mg inj **IM only IM SCH ×2 (08:27→21:38)
[2021-03-02] MEDS: pantoprazole 40 MG vial IV SCH (08:27)
[2021-03-02] MEDS: valproate sod 250mg/5ml UD oral syrup OGT SCH ×2 (08:27→21:34)
[2021-03-02] MEDS: enoxaparin 40mg/0.4ml syringe SUBCUT SCH (08:28)
[2021-03-02] MEDS: potassium Cl 40MEQ/250ML bag 250 ML IV PRN ×2 (08:46→10:54)
--- NOTE | 2021-03-02 17:32 | NUR ---
Patient restless, but following commands and moving all extremities. Dr. Mccarty obtained weaning parameters, but not adequate enough for extubation. Plan to extubate in the AM. Okay to administer 2mg PRN Versed for patient anxiety. MD aware of elevated HR in the 120/130s. Hold nutrition at this time per MD. Wean Geodon order and d/c Abilify. Will continue to monitor.
--- NOTE | 2021-03-02 18:32 | NUR ---
Problems reprioritized. Patient report given, questions answered & plan of care reviewed with Jane NICE.
--- NOTE | 2021-03-02 18:35 | NUR ---
Patient in room ICU 2043. I have received report from Serge NICE and had the opportunity to ask questions and assume patient care.
[2021-03-02] MEDS: lithium carbonate 150mg capsule PO SCH (21:34)
[2021-03-03] VITALS (24 sets, daily range): BP systolic 102–151; BP diastolic 61–95
[2021-03-03] MEDS: piperacillin/tazo 3.375gm/50ml 50 ML IV SCH ×3 (00:49→15:57)
[2021-03-03] MEDS: Dextrose 10%-water IV solution 1,000 ML IV SCH ×2 (00:49→23:28)
[2021-03-03] MEDS: midazolam 100mg in NS 100ml 100 ML IV PRN (02:52)
[2021-03-03 03:08] LABS: BASOPHILS % (AUTO) 0.2 % (0-1); EOSINOPHILS % (AUTO) 0 % (0-6); HEMATOCRIT 35.6 % (35.0-45.0); HEMOGLOBIN 11.7 g/dl (12.0-16.0); LYMPHOCYTES # (AUTO) 0.8 X10'3 (1.1-4.8); LYMPHOCYTES % (AUTO) 7.3 % (21-51); MEAN CORPUSCULAR HEMOGLOBIN 27.7 PG (27.0-31.0); MEAN CORPUSCULAR HGB CONC 32.8 g/dL (33.0-36.5); MEAN CORPUSCULAR VOLUME 84.4 FL (78-98); MEAN PLATELET VOLUME 7.9 FL (7.4-10.4); MONOCYTES # (AUTO) 0.8 X10'3 (0-0.9); MONOCYTES % (AUTO) 7.6 % (2-12); NEUTROPHILS % (AUTO) 84.9 % (42-75); PLATELET COUNT 340 X10'3 (140-440); RED BLOOD COUNT 4.22 X10'6 (4.20-5.60); RED CELL DISTRIBUTION WIDTH 13.4 % (11.5-14.5); WHITE BLOOD COUNT 10.5 X10'3 (4.5-11.0)
[2021-03-03 03:13] LABS: ALANINE AMINOTRANSFERASE 77 U/L (12-78); ALBUMIN 2.3 G/DL (3.4-5.0); ALBUMIN/GLOBULIN RATIO 0.5 (1.1-1.5); ALKALINE PHOSPHATASE 82 IU/L (46-116); ANION GAP 8 (8-16); ASPARTATE AMINO TRANSFERASE 30 U/L (10-37); BILIRUBIN,TOTAL 0.3 MG/DL (0.1-1.0); BLOOD UREA NITROGEN 6 MG/DL (7-18); BUN/CREATININE RATIO 9.1 (6.6-38.0); CALCIUM 9.2 MG/DL (8.5-10.1); CHLORIDE 106 MMOL/L (99-107); CREATININE 0.66 MG/DL (0.40-0.90); GLUCOSE 113 MG/DL (70-104); POTASSIUM 3.6 MMOL/L (3.5-5.1); SODIUM 145 MMOL/L (135-145); TOTAL CARBON DIOXIDE 30.6 MMOL/L (24-32); TOTAL PROTEIN 6.6 G/DL (6.4-8.2); eGFR > 90 ML/MIN
[2021-03-03 03:14] LABS: PHOSPHORUS 3.7 MG/DL (2.3-4.5)
[2021-03-03] MEDS: NORepinephrine 8mg/ 250ml NS 250 ML IV SCH ×2 (03:32→15:40)
[2021-03-03 04:32] LABS: ABG BASE EXCESS 4.2 mmol/L (-2.0-2.0); ABG HCO3 27.9 mmol/L (22.0-26.0); ABG OXYGEN SATURATION 90.4 % (94-97); ABG PCO2 (T) 38.7 mmHg (32.0-45.0); ABG PO2 (T) 58.2 mmHg (75.0-100.0); ALLEN'S TEST POSITIVE; FCOHb 0.3 % (0.0-3.9); FMetHb 0.3 % (0.0-1.5); FO2Hb 89.9 % (94-97); PATIENT TEMPERATURE 37.2; PEEP 5 cm H2O; TOTAL HEMOGLOBIN 12.9 G/dl (12.0-16.0)
[2021-03-03] MEDS: dexmedetomidin/NS 400mcg/100ml 100 ML IV SCH ×2 (05:21→14:29)
--- NOTE | 2021-03-03 06:40 | NUR ---
Problems reprioritized. Patient report given, questions answered & plan of care reviewed with Jeronimo NICE.
[2021-03-03] MEDS: pantoprazole 40 MG vial IV SCH (08:13)
[2021-03-03] MEDS: enoxaparin 40mg/0.4ml syringe SUBCUT SCH (08:14)
[2021-03-03] MEDS: valproate sod 250mg/5ml UD oral syrup OGT SCH ×3 (08:14→21:00)
[2021-03-03] MEDS: lactobacillus rhamnosus 10,000 MMU CELLS/CAPSULE PO SCH ×2 (08:14→20:00)
[2021-03-03] MEDS: ziprasidone IM 20mg inj **IM only IM SCH ×2 (08:14→20:00)
[2021-03-03 09:08] LABS: ALANINE AMINOTRANSFERASE 71 U/L (12-78); ALBUMIN 2.2 G/DL (3.4-5.0); ALBUMIN/GLOBULIN RATIO 0.5 (1.1-1.5); ALKALINE PHOSPHATASE 78 IU/L (46-116); ANION GAP 7 (8-16); ASPARTATE AMINO TRANSFERASE 29 U/L (10-37); BILIRUBIN,TOTAL 0.4 MG/DL (0.1-1.0); BLOOD UREA NITROGEN 9 MG/DL (7-18); BUN/CREATININE RATIO 12.5 (6.6-38.0); CALCIUM 9.2 MG/DL (8.5-10.1); CHLORIDE 106 MMOL/L (99-107); CREATININE 0.72 MG/DL (0.40-0.90); GLUCOSE 124 MG/DL (70-104); POTASSIUM 3.6 MMOL/L (3.5-5.1); SODIUM 142 MMOL/L (135-145); TOTAL CARBON DIOXIDE 29.1 MMOL/L (24-32); TOTAL PROTEIN 6.4 G/DL (6.4-8.2); eGFR > 90 ML/MIN
[2021-03-03 09:18] LABS: MAGNESIUM 2.1 MG/DL (1.5-2.4); PHOSPHORUS 4.1 MG/DL (2.3-4.5)
[2021-03-03] MEDS ORDERED: racepinephrine 11.25mg/0.5ml nebule ONE (14:15)
[2021-03-03] MEDS ORDERED: racepinephrine 11.25mg/0.5ml nebule IH ONE ×2 (14:15→14:20)
[2021-03-03] MEDS ORDERED: ipratropium/albuterol 3ml nebule ONE (14:20)
[2021-03-03] MEDS ORDERED: ipratropium/albuterol 3ml nebule NEB PRN (14:20)
[2021-03-03] MEDS ORDERED: LORazepam 2 mg/ml vial IV ONE (14:25)
[2021-03-03] MEDS ORDERED: LORazepam 2 mg/ml vial ONE (14:26)
[2021-03-03] MEDS ORDERED: dexamethasone sod phosphate 10mg/ml inj IV STA (14:30)
[2021-03-03] MEDS ORDERED: ziprasidone IM 20mg inj **IM only IM ONE (18:25)
[2021-03-03] MEDS ORDERED: haloperidol lactate 5mg/ml inj IM PRN (18:25)
--- NOTE | 2021-03-03 18:30 | NUR ---
I have received report and assumed care of pt. Pt resting in bed rise and fall of chest cavity equile and symmetrical. Pts mother and father are at bedside, pt is somewhat restless, call made to md orders received for a one time dose of 10 mg IM Geodon, and a PRN haldol, Precedex in place as well for BCNA in place for saftey needs.
[2021-03-03] MEDS: lithium carbonate 150mg capsule PO SCH ×2 (20:52→21:00)
[2021-03-04] VITALS (23 sets, daily range): BP systolic 100–129; BP diastolic 57–91
[2021-03-04] MEDS: dexmedetomidin/NS 400mcg/100ml 100 ML IV SCH ×3 (00:09→19:23)
[2021-03-04] MEDS: piperacillin/tazo 3.375gm/50ml 50 ML IV SCH ×3 (00:28→16:26)
[2021-03-04] MEDS: NORepinephrine 8mg/ 250ml NS 250 ML IV SCH (06:21)
[2021-03-04 06:30] LABS: BASOPHILS % (AUTO) 0.3 % (0-1); EOSINOPHILS % (AUTO) 0 % (0-6); HEMATOCRIT 34.6 % (35.0-45.0); HEMOGLOBIN 11.8 g/dl (12.0-16.0); LYMPHOCYTES # (AUTO) 0.9 X10'3 (1.1-4.8); LYMPHOCYTES % (AUTO) 8.3 % (21-51); MEAN CORPUSCULAR HEMOGLOBIN 28.5 PG (27.0-31.0); MEAN CORPUSCULAR HGB CONC 34.1 g/dL (33.0-36.5); MEAN CORPUSCULAR VOLUME 83.6 FL (78-98); MEAN PLATELET VOLUME 7.8 FL (7.4-10.4); MONOCYTES # (AUTO) 0.9 X10'3 (0-0.9); MONOCYTES % (AUTO) 8.6 % (2-12); NEUTROPHILS # (AUTO) 8.8 X10'3 (1.8-7.7); NEUTROPHILS % (AUTO) 82.8 % (42-75); PLATELET COUNT 351 X10'3 (140-440); RED BLOOD COUNT 4.15 X10'6 (4.20-5.60); RED CELL DISTRIBUTION WIDTH 13.4 % (11.5-14.5); WHITE BLOOD COUNT 10.7 X10'3 (4.5-11.0)
[2021-03-04 06:34] LABS: ALANINE AMINOTRANSFERASE 63 U/L (12-78); ALBUMIN 2.6 G/DL (3.4-5.0); ALBUMIN/GLOBULIN RATIO 0.6 (1.1-1.5); ALKALINE PHOSPHATASE 81 IU/L (46-116); ANION GAP 10 (8-16); ASPARTATE AMINO TRANSFERASE 27 U/L (10-37); BILIRUBIN,TOTAL 0.4 MG/DL (0.1-1.0); BLOOD UREA NITROGEN 13 MG/DL (7-18); BUN/CREATININE RATIO 19.4 (6.6-38.0); CALCIUM 9.7 MG/DL (8.5-10.1); CHLORIDE 107 MMOL/L (99-107); CREATININE 0.67 MG/DL (0.40-0.90); GLUCOSE 119 MG/DL (70-104); POTASSIUM 3.8 MMOL/L (3.5-5.1); SODIUM 145 MMOL/L (135-145); TOTAL CARBON DIOXIDE 28.3 MMOL/L (24-32); TOTAL PROTEIN 7.1 G/DL (6.4-8.2); eGFR > 90 ML/MIN
[2021-03-04 06:35] LABS: MAGNESIUM 2.4 MG/DL (1.5-2.4); PHOSPHORUS 3.8 MG/DL (2.3-4.5)
[2021-03-04] MEDS: pantoprazole 40 MG vial IV SCH (07:41)
[2021-03-04] MEDS: ziprasidone IM 20mg inj **IM only IM SCH (07:42)
[2021-03-04] MEDS: enoxaparin 40mg/0.4ml syringe SUBCUT SCH (07:42)
[2021-03-04] MEDS: lactobacillus rhamnosus 10,000 MMU CELLS/CAPSULE PO SCH ×2 (07:43→20:08)
[2021-03-04] MEDS: valproate sod 250mg/5ml UD oral syrup OGT SCH ×2 (07:43→20:44)
--- NOTE | 2021-03-04 12:00 | NUR ---
Reassessment: Pt extubated 03/03 w/ BSS ordered. If diet to be advanced, recommend Regular diet w/ texture per BIOCHEMICAL DEVELOPMENT ENGINEER. IF unable to tolerate PO given ALOC would benefit from NG for nutrition/meds given functional gut. LBM 03/03. Currently receiving D5 at 50ml/hr providing 204kcals. Will continue to monitor and make recommendations as appropriate. Recs: 1) IF unsafe PO, Continuous TF using Vital AF at 60ml/hr to provide 1440ml volume, 1728kcals, 108g Protein, 1166ml free water 2) IF TF, Additional water flush 150ml Q4H; monitor serum Na 3) IF TF, PALB QM/Th; daily wts 4) Routine bowel care 5) IF diet to advance, Regular diet per BIOCHEMICAL DEVELOPMENT ENGINEER/MD recs as medically indicated Addendum: 03/04/21 at [address]se [address] RD Amended: Links added.
--- NOTE | 2021-03-04 18:19 | NUR ---
Patient in room ICU 2043. I have received report from Jeronimo NICE and had the opportunity to ask questions and assume patient care.
[2021-03-04] MEDS: lithium carbonate 150mg capsule PO SCH (20:03)
[2021-03-04] MEDS: Dextrose 10%-water IV solution 1,000 ML IV SCH (20:27)
[2021-03-04] MEDS ORDERED: ziprasidone IM 20mg inj **IM only IM SCH (21:00)
[2021-03-05] VITALS (14 sets, daily range): BP systolic 103–131; BP diastolic 59–84
[2021-03-05] MEDS: piperacillin/tazo 3.375gm/50ml 50 ML IV SCH ×3 (00:42→16:54)
[2021-03-05 03:03] LABS: ALANINE AMINOTRANSFERASE 49 U/L (12-78); ALBUMIN 2.5 G/DL (3.4-5.0); ALBUMIN/GLOBULIN RATIO 0.6 (1.1-1.5); ALKALINE PHOSPHATASE 64 IU/L (46-116); ANION GAP 5 (8-16); ASPARTATE AMINO TRANSFERASE 20 U/L (10-37); BILIRUBIN,TOTAL 0.3 MG/DL (0.1-1.0); BLOOD UREA NITROGEN 20 MG/DL (7-18); BUN/CREATININE RATIO 27.4 (6.6-38.0); CHLORIDE 108 MMOL/L (99-107); CREATININE 0.73 MG/DL (0.40-0.90); GLUCOSE 102 MG/DL (70-104); MAGNESIUM 2.1 MG/DL (1.5-2.4); PHOSPHORUS 3.3 MG/DL (2.3-4.5); POTASSIUM 3.4 MMOL/L (3.5-5.1); SODIUM 144 MMOL/L (135-145); TOTAL CARBON DIOXIDE 31.4 MMOL/L (24-32); TOTAL PROTEIN 6.6 G/DL (6.4-8.2); eGFR > 90 ML/MIN
[2021-03-05 03:05] LABS: BASOPHILS # (AUTO) 0.1 X10'3 (0-0.2); BASOPHILS % (AUTO) 0.7 % (0-1); EOSINOPHILS # (AUTO) 0.1 X10'3 (0-0.9); EOSINOPHILS % (AUTO) 0.9 % (0-6); HEMATOCRIT 33.3 % (35.0-45.0); HEMOGLOBIN 11.1 g/dl (12.0-16.0); LYMPHOCYTES # (AUTO) 1.6 X10'3 (1.1-4.8); LYMPHOCYTES % (AUTO) 21.2 % (21-51); MEAN CORPUSCULAR HGB CONC 33.2 g/dL (33.0-36.5); MEAN CORPUSCULAR VOLUME 84.1 FL (78-98); MEAN PLATELET VOLUME 7.8 FL (7.4-10.4); MONOCYTES # (AUTO) 0.9 X10'3 (0-0.9); MONOCYTES % (AUTO) 12.3 % (2-12); NEUTROPHILS % (AUTO) 64.9 % (42-75); PLATELET COUNT 343 X10'3 (140-440); RED BLOOD COUNT 3.96 X10'6 (4.20-5.60); RED CELL DISTRIBUTION WIDTH 13.1 % (11.5-14.5); WHITE BLOOD COUNT 7.6 X10'3 (4.5-11.0)
[2021-03-05] MEDS: potassium Cl 20mEq/100mL bag 100 ML IV PRN (04:41)
[2021-03-05] MEDS: dexmedetomidin/NS 400mcg/100ml 100 ML IV SCH (05:00)
--- NOTE | 2021-03-05 06:14 | NUR ---
Problems reprioritized. Patient report given, questions answered & plan of care reviewed with Jeronimo NICE.
[2021-03-05] MEDS: pantoprazole 40 MG vial IV SCH (07:26)
[2021-03-05] MEDS: enoxaparin 40mg/0.4ml syringe SUBCUT SCH (07:27)
[2021-03-05] MEDS: valproate sod 250mg/5ml UD oral syrup OGT SCH ×2 (07:32→20:39)
[2021-03-05] MEDS: lactobacillus rhamnosus 10,000 MMU CELLS/CAPSULE PO SCH ×2 (07:32→20:16)
[2021-03-05] MEDS ORDERED: ziprasidone IM 20mg inj **IM only IM SCH (08:00)
[2021-03-05] MEDS: Dextrose 10%-water IV solution 1,000 ML IV SCH (16:45)
--- NOTE | 2021-03-05 18:33 | NUR ---
Problems reprioritized. Patient report given, questions answered & plan of care reviewed with Terese NICE.
[2021-03-05] MEDS: ziprasidone IM 20mg inj **IM only IM SCH (20:00)
[2021-03-05] MEDS: lithium carbonate 150mg capsule PO SCH (20:30)
--- NOTE | 2021-03-05 21:38 | NUR ---
This patient was given her culturelle scheduled at 1999, student accidently exited out of the scanned emar administration before saving it.
[2021-03-06] MEDS: piperacillin/tazo 3.375gm/50ml 50 ML IV SCH ×3 (00:36→16:59)
[2021-03-06 05:06] VITALS: BP 125/79
[2021-03-06 06:00] VITALS: BP 121/74
--- NOTE | 2021-03-06 06:25 | NUR ---
Problems reprioritized. Patient report given, questions answered & plan of care reviewed with TEX Lara.
[2021-03-06 07:12] LABS: BASOPHILS % (AUTO) 0.5 % (0-1); EOSINOPHILS # (AUTO) 0.1 X10'3 (0-0.9); EOSINOPHILS % (AUTO) 1.1 % (0-6); HEMATOCRIT 38.4 % (35.0-45.0); HEMOGLOBIN 12.9 g/dl (12.0-16.0); LYMPHOCYTES # (AUTO) 2.1 X10'3 (1.1-4.8); LYMPHOCYTES % (AUTO) 23.9 % (21-51); MEAN CORPUSCULAR HGB CONC 33.5 g/dL (33.0-36.5); MEAN CORPUSCULAR VOLUME 83.7 FL (78-98); MEAN PLATELET VOLUME 7.4 FL (7.4-10.4); MONOCYTES # (AUTO) 0.8 X10'3 (0-0.9); MONOCYTES % (AUTO) 8.9 % (2-12); NEUTROPHILS # (AUTO) 5.9 X10'3 (1.8-7.7); NEUTROPHILS % (AUTO) 65.6 % (42-75); PLATELET COUNT 402 X10'3 (140-440); RED BLOOD COUNT 4.59 X10'6 (4.20-5.60); RED CELL DISTRIBUTION WIDTH 13.1 % (11.5-14.5)
[2021-03-06 07:27] LABS: ALANINE AMINOTRANSFERASE 79 U/L (12-78); ALBUMIN 2.9 G/DL (3.4-5.0); ALBUMIN/GLOBULIN RATIO 0.7 (1.1-1.5); ALKALINE PHOSPHATASE 85 IU/L (46-116); ANION GAP 7 (8-16); ASPARTATE AMINO TRANSFERASE 38 U/L (10-37); BILIRUBIN,TOTAL 0.4 MG/DL (0.1-1.0); BLOOD UREA NITROGEN 17 MG/DL (7-18); CALCIUM 9.5 MG/DL (8.5-10.1); CHLORIDE 105 MMOL/L (99-107); CREATININE 0.74 MG/DL (0.40-0.90); GLUCOSE 99 MG/DL (70-104); POTASSIUM 3.2 MMOL/L (3.5-5.1); SODIUM 140 MMOL/L (135-145); TOTAL CARBON DIOXIDE 27.8 MMOL/L (24-32); TOTAL PROTEIN 7.3 G/DL (6.4-8.2); eGFR > 90 ML/MIN
[2021-03-06 07:28] LABS: MAGNESIUM 2.2 MG/DL (1.5-2.4); PHOSPHORUS 3.9 MG/DL (2.3-4.5); TRIGLYCERIDES 102 MG/DL (20-135)
[2021-03-06] MEDS: ziprasidone IM 20mg inj **IM only IM SCH ×2 (08:00→20:00)
[2021-03-06] MEDS: valproate sod 250mg/5ml UD oral syrup OGT SCH ×2 (09:17→22:00)
[2021-03-06] MEDS: enoxaparin 40mg/0.4ml syringe SUBCUT SCH (09:17)
[2021-03-06] MEDS: pantoprazole 40mg Tablet.DR PO SCH (09:18)
[2021-03-06] MEDS: lactobacillus rhamnosus 10,000 MMU CELLS/CAPSULE PO SCH ×2 (09:18→21:59)
[2021-03-06 11:00] VITALS: BP 127/72
[2021-03-06] MEDS: Dextrose 10%-water IV solution 1,000 ML IV SCH (11:40)
--- NOTE | 2021-03-06 11:46 | NUR ---
DC accucheck? PAGER ID: [phone] MESSAGE: room [id number] Kaur [address]iscoll, patient is tolerating diet and blood sugars are within range, can I DC Q6Hr accuchecks? Thank You, Jane NICE [phone]
[2021-03-06 15:00] VITALS: BP 129/80
[2021-03-06 18:00] VITALS: BP 126/78
--- NOTE | 2021-03-06 18:20 | NUR ---
patient sees therapist visited bedside with her psychotherapist today, plans to continue out patient sessions
[2021-03-06] MEDS ORDERED: magnesium Cl slow-release 64mg tablet PO PRN (18:25)
[2021-03-06] MEDS ORDERED: magnesium 4gm in 100ml NS 100 ML IV PRN (18:25)
[2021-03-06] MEDS ORDERED: potassium Cl 20 mEq SR tablet PO PRN (18:25)
[2021-03-06] MEDS ORDERED: potassium Cl 40MEQ/1/2NS 520ml 520 ML IV PRN (18:25)
--- NOTE | 2021-03-06 18:47 | NUR ---
Problems reprioritized. Patient report given, questions answered & plan of care reviewed with Terese NICE.
[2021-03-06] MEDS: K and/or MAG REPLACEMENT MC SCH (20:00)
[2021-03-06] MEDS: furosemide 20 MG/2 ML vial IV SCH (21:58)
[2021-03-06] MEDS: metoprolol succinate 25mg (24-HOUR) SR. Tablet PO SCH (21:59)
[2021-03-06] MEDS: potassium Cl 20 mEq SR tablet PO PRN (21:59)
[2021-03-06 22:00] VITALS: BP 118/70
[2021-03-06] MEDS: lithium carbonate 150mg capsule PO SCH (22:00)
[2021-03-07 02:00] VITALS: BP 113/72
[2021-03-07] MEDS: potassium Cl 20 mEq SR tablet PO PRN (02:28)
[2021-03-07 07:00] VITALS: BP 113/69
--- NOTE | 2021-03-07 07:13 | NUR ---
Problems reprioritized. Patient report given, questions answered & plan of care reviewed with TEX Trujillo.
[2021-03-07] MEDS: K and/or MAG REPLACEMENT MC SCH ×2 (08:00→20:00)
[2021-03-07] MEDS: ziprasidone IM 20mg inj **IM only IM SCH (08:00)
[2021-03-07] MEDS: lactobacillus rhamnosus 10,000 MMU CELLS/CAPSULE PO SCH ×2 (08:28→20:49)
[2021-03-07] MEDS: aspirin 81mg, enteric-coated 1 TAB TABLET.DR PO SCH (08:28)
[2021-03-07] MEDS: pantoprazole 40mg Tablet.DR PO SCH (08:28)
[2021-03-07] MEDS: furosemide 20 MG/2 ML vial IV SCH ×2 (08:28→20:48)
[2021-03-07] MEDS: valproate sod 250mg/5ml UD oral syrup OGT SCH ×2 (08:29→20:49)
[2021-03-07] MEDS: enoxaparin 40mg/0.4ml syringe SUBCUT SCH (08:29)
[2021-03-07] MEDS: Dextrose 10%-water IV solution 1,000 ML IV SCH (08:30)
[2021-03-07 11:00] VITALS: BP 126/77
[2021-03-07] MEDS ORDERED: iohexol 350MG/ML 100ml bottle IV ONE (12:14)
[2021-03-07 12:17] LABS: BASOPHILS # (AUTO) 0.1 X10'3 (0-0.2); BASOPHILS % (AUTO) 0.4 % (0-1); EOSINOPHILS # (AUTO) 0.1 X10'3 (0-0.9); EOSINOPHILS % (AUTO) 0.5 % (0-6); HEMATOCRIT 43.6 % (35.0-45.0); HEMOGLOBIN 14.6 g/dl (12.0-16.0); LYMPHOCYTES # (AUTO) 2.3 X10'3 (1.1-4.8); LYMPHOCYTES % (AUTO) 16.3 % (21-51); MEAN CORPUSCULAR HEMOGLOBIN 27.8 PG (27.0-31.0); MEAN CORPUSCULAR HGB CONC 33.5 g/dL (33.0-36.5); MEAN CORPUSCULAR VOLUME 82.8 FL (78-98); MEAN PLATELET VOLUME 7.3 FL (7.4-10.4); MONOCYTES # (AUTO) 1.1 X10'3 (0-0.9); NEUTROPHILS # (AUTO) 10.4 X10'3 (1.8-7.7); NEUTROPHILS % (AUTO) 74.8 % (42-75); PLATELET COUNT 492 X10'3 (140-440); RED BLOOD COUNT 5.26 X10'6 (4.20-5.60); WHITE BLOOD COUNT 13.9 X10'3 (4.5-11.0)
[2021-03-07 12:38] LABS: ALANINE AMINOTRANSFERASE 70 U/L (12-78); ALBUMIN 3.4 G/DL (3.4-5.0); ALBUMIN/GLOBULIN RATIO 0.7 (1.1-1.5); ALKALINE PHOSPHATASE 83 IU/L (46-116); ANION GAP 11 (8-16); ASPARTATE AMINO TRANSFERASE 24 U/L (10-37); BILIRUBIN,TOTAL 0.4 MG/DL (0.1-1.0); BLOOD UREA NITROGEN 15 MG/DL (7-18); BUN/CREATININE RATIO 17.4 (6.6-38.0); CALCIUM 9.9 MG/DL (8.5-10.1); CHLORIDE 100 MMOL/L (99-107); CREATININE 0.86 MG/DL (0.40-0.90); GLUCOSE 109 MG/DL (70-104); MAGNESIUM 2.1 MG/DL (1.5-2.4); PHOSPHORUS 3.4 MG/DL (2.3-4.5); POTASSIUM 3.7 MMOL/L (3.5-5.1); SODIUM 139 MMOL/L (135-145); TOTAL CARBON DIOXIDE 28.2 MMOL/L (24-32); TOTAL PROTEIN 8.3 G/DL (6.4-8.2); eGFR 80 ML/MIN
--- NOTE | 2021-03-07 13:26 | NUR ---
Reassessment: Pt seen by TEST BORING CREW CHIEF today and recommended Regular diet. Avg PO intake 66% x 8 meals previously on SB6 diet, though up to 100% today once advanced to Regular. Pt also receiving D10W at 50ml/hr providing 408kcals/day. LBM 03/07. No new nutrition intervention implemented at this time, will continue to monitor. Recs: 1) Continue Regular diet as tolerated per TEST BORING CREW CHIEF recs 2) Bowel care per rx 3) Weekly wts Addendum: 03/07/21 at [address]se [address] Amended: Links added.
[2021-03-07 15:00] VITALS: BP 132/75
[2021-03-07 18:00] VITALS: BP 158/86
[2021-03-07] MEDS ORDERED: metoprolol tartrate 1mg/ml inj IV PRN (18:25)
[2021-03-07] MEDS ORDERED: regadenoson 0.4mg/5ml syringe IV PRN (18:25)
[2021-03-07] MEDS ORDERED: aminophylline 250mg/10ml inj. IV PRN (18:25)
[2021-03-07] MEDS ORDERED: nitroGLYCERIN 0.4mg SUBLingual tab SL PRN (18:25)
[2021-03-07] MEDS: lithium carbonate 150mg capsule PO SCH (20:49)
[2021-03-07] MEDS: metoprolol succinate 25mg (24-HOUR) SR. Tablet PO SCH (20:49)
[2021-03-07 22:00] VITALS: BP 125/62
[2021-03-08] VITALS (9 sets, daily range): BP systolic 102–130; BP diastolic 58–74
--- NOTE | 2021-03-08 06:18 | NUR ---
Problems reprioritized. Patient report given, questions answered & plan of care reviewed with TEX Jennings.
[2021-03-08 06:37] LABS: MAGNESIUM 2.3 MG/DL (1.5-2.4); POTASSIUM 3.4 MMOL/L (3.5-5.1)
[2021-03-08 07:37] LABS: BASOPHILS % (AUTO) 0.3 % (0-1); EOSINOPHILS # (AUTO) 0.2 X10'3 (0-0.9); EOSINOPHILS % (AUTO) 1.4 % (0-6); HEMATOCRIT 46.6 % (35.0-45.0); HEMOGLOBIN 15.5 g/dl (12.0-16.0); LYMPHOCYTES # (AUTO) 3.3 X10'3 (1.1-4.8); LYMPHOCYTES % (AUTO) 23.1 % (21-51); MEAN CORPUSCULAR HEMOGLOBIN 27.4 PG (27.0-31.0); MEAN CORPUSCULAR HGB CONC 33.2 g/dL (33.0-36.5); MEAN CORPUSCULAR VOLUME 82.6 FL (78-98); MEAN PLATELET VOLUME 7.4 FL (7.4-10.4); MONOCYTES # (AUTO) 1.2 X10'3 (0-0.9); MONOCYTES % (AUTO) 8.5 % (2-12); NEUTROPHILS # (AUTO) 9.6 X10'3 (1.8-7.7); NEUTROPHILS % (AUTO) 66.7 % (42-75); PLATELET COUNT 481 X10'3 (140-440); RED BLOOD COUNT 5.64 X10'6 (4.20-5.60); RED CELL DISTRIBUTION WIDTH 13.3 % (11.5-14.5); WHITE BLOOD COUNT 14.4 X10'3 (4.5-11.0)
[2021-03-08 07:56] LABS: ALANINE AMINOTRANSFERASE 55 U/L (12-78); ALBUMIN 3.4 G/DL (3.4-5.0); ALBUMIN/GLOBULIN RATIO 0.7 (1.1-1.5); ALKALINE PHOSPHATASE 87 IU/L (46-116); ANION GAP 6 (8-16); ASPARTATE AMINO TRANSFERASE 22 U/L (10-37); BILIRUBIN,TOTAL 0.5 MG/DL (0.1-1.0); BLOOD UREA NITROGEN 16 MG/DL (7-18); BUN/CREATININE RATIO 18.4 (6.6-38.0); CHLORIDE 100 MMOL/L (99-107); CREATININE 0.87 MG/DL (0.40-0.90); GLUCOSE 102 MG/DL (70-104); POTASSIUM 3.6 MMOL/L (3.5-5.1); SODIUM 136 MMOL/L (135-145); TOTAL CARBON DIOXIDE 29.7 MMOL/L (24-32); TOTAL PROTEIN 8.2 G/DL (6.4-8.2); eGFR 79 ML/MIN
[2021-03-08] MEDS: K and/or MAG REPLACEMENT MC SCH (08:00)
[2021-03-08] MEDS: enoxaparin 40mg/0.4ml syringe SUBCUT SCH (08:34)
[2021-03-08] MEDS: furosemide 20 MG/2 ML vial IV SCH (08:34)
[2021-03-08] MEDS: valproate sod 250mg/5ml UD oral syrup OGT SCH (08:35)
[2021-03-08] MEDS: pantoprazole 40mg Tablet.DR PO SCH (08:35)
[2021-03-08] MEDS: aspirin 81mg, enteric-coated 1 TAB TABLET.DR PO SCH (08:35)
[2021-03-08] MEDS: lactobacillus rhamnosus 10,000 MMU CELLS/CAPSULE PO SCH (08:35)
[2021-03-08] MEDS: potassium Cl 20 mEq SR tablet PO PRN (08:35)
[2021-03-08] MEDS: Dextrose 10%-water IV solution 1,000 ML IV SCH (12:35)
[2021-03-08] MEDS ORDERED: FURO-150 PO (13:05)
[2021-03-08] MEDS ORDERED: ASPI-1071 PO (13:05)
[2021-03-08] MEDS ORDERED: METO-395 PO (13:05)
[2021-03-08] MEDS ORDERED: VALP250C3 PO ×2 (13:13)
--- NOTE | 2021-03-08 15:20 | NUR ---
PT STABLE FOR DISCHARGE PER MD ORDERS. ALL DISCHARGE INSTRUCTIONS REVIEWED WITH PATIENT AND ALL QUESTIONS ANSWERED. PT WILL MAKE OWN FOLLOW UP WITH PCP. NEW RX'S E-SCRIPTED TO [facility] ON [address] [place]. PIV DISCONTINUED, CANNULA INTACT. TELEMETRY DISCONTINUED. ALL BELONGINGS COLLECTED AND SENT WITH PATIENT. PATIENT WAS WHEELED TO LOBBY WHERE PRIVATE VEHICLE WAS WAITING.
[2021-03-13] MEDS ORDERED: aripiprazole 400mg suspension ER syringe IM SCH (10:00)
== END 2021-03-08 15:20 | disposition home or self-care (01) | DRG 753 ==
LOC: ER 08:29 → UNDOADMIN 02-25 02:52 → ED HOLD 02-25 02:52 → ICU 2S 02-26 12:30 → PCU 3S 03-05 12:46
PROVIDERS: ADMIT Internal Medicine; ATTEND Internal Medicine
PROC: 5A1955Z Respiratory Ventilation, Greater than 96 Consecutive Hours (ICD-10-PCS; principal; 2021-02-26)
PROC: 5A12012 Performance of Cardiac Output, Single, Manual (ICD-10-PCS; 2021-02-26)
PROC: 0BH17EZ Insertion of Endotracheal Airway into Trachea, Via Natural or Artificial Opening (ICD-10-PCS; 2021-02-26)
PROC: 4A10X4Z Monitoring of Central Nervous Electrical Activity, External Approach (ICD-10-PCS; 2021-02-27)
PROC: 4A10X4Z Monitoring of Central Nervous Electrical Activity, External Approach (ICD-10-PCS; 2021-02-28)
PROC: 5A09357 Assistance with Respiratory Ventilation, Less than 24 Consecutive Hours, Continuous Positive Airway Pressure (ICD-10-PCS; 2021-03-03)
PROC: B32T1ZZ Computerized Tomography (CT Scan) of Left Pulmonary Artery using Low Osmolar Contrast (ICD-10-PCS; 2021-03-07)
PROC: B3201ZZ Computerized Tomography (CT Scan) of Thoracic Aorta using Low Osmolar Contrast (ICD-10-PCS; 2021-03-07)
PROC: B32S1ZZ Computerized Tomography (CT Scan) of Right Pulmonary Artery using Low Osmolar Contrast (ICD-10-PCS; 2021-03-07)
PROC: 4A02XM4 Measurement of Cardiac Total Activity, External Approach (ICD-10-PCS; 2021-03-08)
PROC: 3E073KZ Introduction of Other Diagnostic Substance into Coronary Artery, Percutaneous Approach (ICD-10-PCS; 2021-03-08)
DX: F31.64 Bipolar disorder, current episode mixed, severe, with psychotic features (principal); I46.9 Cardiac arrest, cause unspecified; J96.00 Acute respiratory failure, unspecified whether with hypoxia or hypercapnia; J69.0 Pneumonitis due to inhalation of food and vomit; I21.4 Non-ST elevation (NSTEMI) myocardial infarction; I50.21 Acute systolic (congestive) heart failure; N17.9 Acute kidney failure, unspecified; E03.9 Hypothyroidism, unspecified; G47.00 Insomnia, unspecified; F12.90 Cannabis use, unspecified, uncomplicated; E16.2 Hypoglycemia, unspecified; E87.0 Hyperosmolality and hypernatremia; I47.2 Ventricular tachycardia; J98.01 Acute bronchospasm; M62.82 Rhabdomyolysis; Z20.822 Contact with and (suspected) exposure to COVID-19; Z78.1 Physical restraint status; Z79.82 Long term (current) use of aspirin; Z79.899 Other long term (current) drug therapy
CPT/HCPCS: 36415; 36600; 71045; 71275; 76536; 76937; 78452; 80048; 80053; 80061; 80164; 80178; 80305; 80320; 81003; 81025; 82550; 82553; 82803; 82948; 83605; 83735; 83880; 83930; 83935; 84100; 84105; 84132; 84145; 84156; 84166; 84439; 84443; 84478; 84484; 85007; 85018; 85025; 87070; 87081; 87635; 92508; 92616; 92950; 93005; 93017; 93306; 94002; 94003; 94640; 94660; 94760; 94799; 95720; 96361; 96372; 96374; 97161; 97530; 99285; A9500; C9113; C9803; G0378; J0171; J1100; J1200; J1630; J1650; J1940; J2060; J2250; J2543; J2704; J2785; J3010; J3475; J3480; J3486; J3490; J7030; P9045; Q9967